=== PATIENT | male | born 1960 | race Caucasian/White ===

== ENCOUNTER → 2016-10-21 | Outpatient (CLI) | payer OTHER ==
[~2016-10-21] MED LIST: ACYC-114 PO; ALLO300T PO; ASPI-650 PO; BISA10SU65 PR; CALC-141 PO; CALC3.7S5 NAS; CELE200C PO; DIAZ5TAB4 PO; DIPH50CA PO; DOCU-30 PO; FAMO20TA7 PO; FURO-93 PO; LACT1CAP11 PO; LEVO750T26 PO; MAG30ORA PO; METO25TA35 PO; METR500T PO; MORP-52 PO; MORP15TA3 PO; MULT-658 PO; NITR100C6 PO; NORT25CA PO; ONDA-39 PO; ONDA4TAB13 SL; ONDA4TAB7 PO; OXYC-223 PO; OXYC-229 PO; OXYC10TA6 PO; OXYC1TAB7 PO; OXYC1TAB9 PO; OXYC5TAB3 PO; POLY17PO5 PO; PRED10TA PO; PRED20TA PO; PRED5TAB PO; PREG100C PO; RISE5TAB PO; SENN1TAB7 PO; SULF1TAB23 PO; SULF1TAB24 PO; TACR1CAP4 PO; TERI2.4P SC; TERI2.4P SQ; TEST2.5G5 PO; TIZA4TAB PO; TRAM50TA2 PO
== END | disposition home or self-care (01) ==
LOC: CFH 15:20
PROVIDERS: ATTEND Orthopaedic Surgery Orthopaedic Surgery of the Spine
DX: M51.16 Intervertebral disc disorders with radiculopathy, lumbar region (principal)
CPT/HCPCS: 72148

== ENCOUNTER 2016-11-15 02:11 | Emergency (ER) | payer OTHER ==
[~2016-11-15] VITALS: Ht 195.6 cm; Wt 98.0 kg
[2016-11-15] MEDS ORDERED: ONDANSETRON 2MG/ML, 2ML ONE (02:43)
[2016-11-15] MEDS ORDERED: HYDROmorphone 1 MG/ML, 1ML ONE ×2 (02:43→04:05)
[2016-11-15] MEDS ORDERED: ONDANSETRON 2MG/ML, 2ML IVPush ONE (03:00)
[2016-11-15] MEDS ORDERED: SODIUM CHLORIDE 0.9% 1,000ML IVBOLUS ONE (03:00)
[2016-11-15] MEDS ORDERED: SODIUM CHLORIDE FLUSH 10ML SYR IVF ONE (03:00)
[2016-11-15] MEDS: HYDROmorphone 1 MG/ML, 1ML IVPush PRN ×2 (03:06→04:08)
[2016-11-15 03:14] LABS: HEMATOCRIT 35.9 % (39.2-51.8); HEMOGLOBIN 11.9 g/dL (13.7-18.0); WHITE BLOOD COUNT 13.7 x10^3/uL (3.4-10)
[2016-11-15 03:21] LABS: BLOOD UREA NITROGEN 26 mg/dL (7-18)
[2016-11-15 05:04] VITALS: BP 108/80
== END 2016-11-15 05:21 | disposition home or self-care (01) ==
LOC: ED 02:58
DX: K57.30 Diverticulosis of large intestine without perforation or abscess without bleeding (principal); I10 Essential (primary) hypertension; Z88.0 Allergy status to penicillin; Z88.1 Allergy status to other antibiotic agents; Z88.8 Allergy status to other drugs, medicaments and biological substances
CPT/HCPCS: 36415; 74177; 80048; 81003; 82040; 85025; 96361; 96374; 96375; 96376; 99285; J1170; J2405; J7030

== ENCOUNTER 2016-11-18 14:51 | Inpatient (IN) | payer OTHER ==
[~2016-11-18] VITALS: Ht 195.6 cm; Wt 104.6 kg
[~2016-11-18 14:51] MED LIST changes: +DOCU-131 PO; -DOCU-30 PO; -ONDA-39 PO; +ONDA4TAB12 PO; -OXYC-223 PO; -OXYC-229 PO; +OXYC-306 PO; +OXYC-307 PO
[2016-11-18] MEDS ORDERED: SODIUM CHLORIDE FLUSH 10ML SYR IVF ONE (15:30)
[2016-11-18] MEDS ORDERED: ONDANSETRON 2MG/ML, 2ML IVPush ONE (15:30)
[2016-11-18] MEDS ORDERED: SODIUM CHLORIDE 0.9% 1,000ML IVBOLUS ONE (15:30)
[2016-11-18 15:46] LABS: HEMATOCRIT 43.2 % (39.2-51.8); HEMOGLOBIN 14.5 g/dL (13.7-18.0)
[2016-11-18] MEDS ORDERED: ONDANSETRON 2MG/ML, 2ML ONE (15:52)
[2016-11-18] MEDS ORDERED: HYDROmorphone 1 MG/ML, 1ML ONE (15:52)
[2016-11-18 15:59] LABS: ASPARTATE AMINO TRANSFERASE 21 U/L (15-37); BLOOD UREA NITROGEN 29 mg/dL (7-18)
[2016-11-18] MEDS ORDERED: HYDROmorphone 2 MG/ML, 1ML IVPush ONE (16:00)
[2016-11-18 18:15] LABS: PATH.CAST-FLAG NOT PRESENT; SPERM-FLAG NOT PRESENT; SRC-FLAG NOT PRESENT; XTAL-FLAG NOT PRESENT; YLC-FLAG NOT PRESENT
[2016-11-18] MEDS ORDERED: hydrALAzine 20 MG/ML, 1ML IVPush PRN (18:30)
[2016-11-18] MEDS ORDERED: ONDANSETRON 2MG/ML, 2ML IVPush PRN (18:30)
[2016-11-18] MEDS ORDERED: POLYETHYLENE GLYCOL 17 GM PACKET PO PRN (18:30)
[2016-11-18] MEDS ORDERED: BISACODYL 10 MG SUPP PR PRN (18:30)
[2016-11-18] MEDS ORDERED: ACYCLOVIR 400 MG TABLET PO PRN (18:30)
[2016-11-18] MEDS ORDERED: DOCUSATE 100 MG CAPSULE PO PRN (18:30)
[2016-11-18 19:15] VITALS: BP 90/61
[2016-11-18] MEDS ORDERED: OXYcodone IR 5MG TABLET ONE (19:48)
[2016-11-18] MEDS: OXYcodone IR 5MG TABLET PO SCH (19:57)
[2016-11-18] MEDS: SODIUM CHLORIDE 0.9% 1,000 ML IV SCH (20:01)
[2016-11-18] MEDS: PREGABALIN 100 MG CAPSULE PO SCH (20:01)
[2016-11-18] MEDS: KETOROLAC 30 MG/1 ML IVPush PRN (21:58)
[2016-11-19] MEDS: SODIUM CHLORIDE 0.9% 1,000 ML IV SCH ×4 (01:10→21:10)
[2016-11-19 01:27] VITALS: BP 91/59
[2016-11-19 04:58] LABS: HEMATOCRIT 35.8 % (39.2-51.8); HEMOGLOBIN 11.9 g/dL (13.7-18.0); WHITE BLOOD COUNT 10.5 x10^3/uL (3.4-10)
[2016-11-19 05:11] LABS: BLOOD UREA NITROGEN 34 mg/dL (7-18)
[2016-11-19 06:50] VITALS: BP 101/67
[2016-11-19] MEDS: NORTRIPTYLINE 25 MG CAPSULE PO SCH (08:23)
[2016-11-19] MEDS: PREGABALIN 100 MG CAPSULE PO SCH ×3 (08:23→21:00)
[2016-11-19] MEDS: OXYcodone IR 5MG TABLET PO SCH ×3 (08:23→21:00)
[2016-11-19] MEDS: TACROLIMUS 1 MG CAPSULE PO SCH (08:24)
[2016-11-19] MEDS: ALLOPURINOL 300 MG TABLET PO SCH (08:24)
[2016-11-19] MEDS: SENNA/DOCUSATE TABLET PO SCH (08:24)
[2016-11-19 13:00] VITALS: BP 103/66
[2016-11-19] MEDS: TAMSULOSIN 0.4 MG CAP.ER.24H PO SCH (13:25)
[2016-11-19] MEDS: CLINDAMYCIN PMX 900MG/50ML 50 ML IV SCH (15:43)
[2016-11-19] MEDS: HEPARIN 5,000 UNITS/ML, 1ML SQ SCH (15:44)
[2016-11-19] MEDS ORDERED: LIDOCAINE 1%, 20ML ONE (16:03)
[2016-11-19 18:18] LABS: SYN WBC SQ COUNTED 1
[2016-11-19 18:19] LABS: SYN DILUTIN 1
[2016-11-19] MEDS ORDERED: TRANEXAMIC ACID 100 MG/ML, 10ML ONE ×4 (19:33→19:34)
[2016-11-19] MEDS ORDERED: VANCOMYCIN 1,000 MG ONE ×2 (19:34→22:35)
[2016-11-19] MEDS ORDERED: ROPIvacaine/PF 0.2%, 20 ML ONE (19:35)
[2016-11-19] MEDS ORDERED: EPINEPHRINE 1 MG/ML, 1ML ONE (19:36)
[2016-11-19 19:38] VITALS: BP 99/66
[2016-11-19] MEDS ORDERED: VANCOMYCIN PER PHARMACY MC PRN (21:00)
[2016-11-19] MEDS ORDERED: PIPERACILLIN/TAZO 2.25 GM in SODIUM CHLORIDE 0.9% 50 ML IV SCH (21:00)
[2016-11-19] MEDS ORDERED: FENTANYL PF 100 MCG/2ML ONE ×4 (21:02→23:18)
[2016-11-19] MEDS ORDERED: MIDAZOLAM 1 MG/ML, 2ML ONE (21:02)
[2016-11-19] MEDS ORDERED: ONDANSETRON 2MG/ML, 2ML ONE (21:13)
[2016-11-19] MEDS ORDERED: ROCURONIUM 10 MG/ML ONE (21:13)
[2016-11-19] MEDS ORDERED: PROPOFOL 10 MG/ML, 20ML ONE (21:13)
[2016-11-19] MEDS ORDERED: SUCCINYLCHOLINE 20 MG/ML, 10ML ONE (21:13)
[2016-11-19] MEDS ORDERED: DEXAMETHASONE 4 MG/ML, 1ML ONE (21:13)
[2016-11-19] MEDS ORDERED: PHARMACOKINETIC CONSULTATION MC ONE (21:30)
[2016-11-19] MEDS ORDERED: PHARMACOKINETIC MONITORING MC PRN (21:30)
[2016-11-19] MEDS ORDERED: ONDANSETRON 2MG/ML, 2ML IVPush PRN (22:00)
[2016-11-19] MEDS ORDERED: LABETALOL 5MG/ML, 20ML IV PRN (22:00)
[2016-11-19] MEDS ORDERED: ACETAMINOPHEN 325 MG TABLET PO PRN (22:00)
[2016-11-19] MEDS ORDERED: OXYcodone 5 MG/5 ML ORAL.SOL UDC PO PRN (22:00)
[2016-11-19] MEDS ORDERED: hydrALAzine 20 MG/ML, 1ML IV PRN (22:00)
[2016-11-19] MEDS ORDERED: VANCOMYCIN 1,000 MG IM ONE (22:36)
[2016-11-19] MEDS ORDERED: OXYcodone 5 MG/5 ML ORAL.SOL UDC ONE (23:18)
[2016-11-19] MEDS: FENTANYL PF 100 MCG/2ML IV PRN ×2 (23:27→23:37)
[2016-11-19] MEDS ORDERED: HYDROmorphone 1 MG/ML, 1ML ONE (23:46)
[2016-11-19] MEDS: HYDROmorphone 1 MG/ML, 1ML IV PRN (23:48)
[2016-11-20] VITALS (8 sets, daily range): BP systolic 77–103; BP diastolic 55–81
[2016-11-20] MEDS: HYDROmorphone 1 MG/ML, 1ML IV PRN (00:02)
[2016-11-20] MEDS: CLINDAMYCIN PMX 900MG/50ML 50 ML IV SCH (01:04)
[2016-11-20] MEDS: MEROPENEM 1 GM in SODIUM CHLORIDE 0.9% 100 ML IV SCH ×3 (01:04→17:19)
[2016-11-20] MEDS: KETOROLAC 30 MG/1 ML IVPush PRN (01:40)
[2016-11-20] MEDS ORDERED: SODIUM CHLORIDE 0.9% 1,000ML IVBOLUS ONE ×4 (04:30→13:30)
[2016-11-20] MEDS: HEPARIN 5,000 UNITS/ML, 1ML SQ SCH ×2 (04:51→16:30)
[2016-11-20] MEDS: SODIUM CHLORIDE 0.9% 1,000 ML IV SCH ×3 (04:52→20:12)
[2016-11-20] MEDS ORDERED: FENTANYL PF 100 MCG/2ML IV STA (05:28)
[2016-11-20] MEDS ORDERED: FENTANYL PF 100 MCG/2ML ONE (05:29)
[2016-11-20 06:43] LABS: HEMATOCRIT 29.6 % (39.2-51.8); HEMOGLOBIN 9.8 g/dL (13.7-18.0); WHITE BLOOD COUNT 5.8 x10^3/uL (3.4-10)
[2016-11-20 06:55] LABS: ASPARTATE AMINO TRANSFERASE 16 U/L (15-37); BLOOD UREA NITROGEN 27 mg/dL (7-18)
[2016-11-20] MEDS: DAPTOMYCIN 400 MG in SODIUM CHLORIDE 0.9% 100 ML IV SCH (07:42)
[2016-11-20] MEDS ORDERED: VANCOMYCIN 1,900 MG in SODIUM CHLORIDE 0.9% 250 ML IV SCH (08:00)
[2016-11-20] MEDS ORDERED: ACETAMINOPHEN 325 MG TABLET ONE (08:15)
[2016-11-20] MEDS: ACETAMINOPHEN 325 MG TABLET PO PRN (08:16)
[2016-11-20] MEDS: OXYcodone IR 5MG TABLET PO SCH ×3 (09:41→20:14)
[2016-11-20] MEDS: TACROLIMUS 1 MG CAPSULE PO SCH (09:48)
[2016-11-20] MEDS: ALLOPURINOL 300 MG TABLET PO SCH (09:48)
[2016-11-20] MEDS: PREGABALIN 100 MG CAPSULE PO SCH ×3 (09:49→20:14)
[2016-11-20] MEDS: TAMSULOSIN 0.4 MG CAP.ER.24H PO SCH (09:49)
[2016-11-20] MEDS: SENNA/DOCUSATE TABLET PO SCH (09:49)
[2016-11-20] MEDS: NORTRIPTYLINE 25 MG CAPSULE PO SCH (09:49)
[2016-11-20] MEDS ORDERED: SODIUM CHLORIDE 0.9% 1,000 ML IVBOLUS PRN (10:20)
[2016-11-20] MEDS ORDERED: NOREPINEPHRINE 4 MG in SODIUM CHLORIDE 0.9% 246 ML IV PRN (15:00)
[2016-11-21] MEDS: MEROPENEM 1 GM in SODIUM CHLORIDE 0.9% 100 ML IV SCH ×3 (00:04→17:08)
[2016-11-21] MEDS: HYDROmorphone 2 MG/ML, 1ML IVPush PRN ×2 (00:04→06:41)
[2016-11-21] MEDS: SODIUM CHLORIDE 0.9% 1,000 ML IV SCH ×3 (03:05→10:46)
[2016-11-21] MEDS: HEPARIN 5,000 UNITS/ML, 1ML SQ SCH ×2 (03:05→17:09)
[2016-11-21 04:15] VITALS: BP 100/61
[2016-11-21] MEDS: DAPTOMYCIN 400 MG in SODIUM CHLORIDE 0.9% 100 ML IV SCH (06:28)
[2016-11-21] MEDS: ALLOPURINOL 300 MG TABLET PO SCH (10:11)
[2016-11-21] MEDS: NORTRIPTYLINE 25 MG CAPSULE PO SCH (10:11)
[2016-11-21] MEDS: TAMSULOSIN 0.4 MG CAP.ER.24H PO SCH (10:11)
[2016-11-21] MEDS: OXYcodone IR 5MG TABLET PO SCH ×3 (10:11→20:42)
[2016-11-21] MEDS: SENNA/DOCUSATE TABLET PO SCH (10:11)
[2016-11-21] MEDS: PREGABALIN 100 MG CAPSULE PO SCH ×3 (10:11→20:42)
[2016-11-21] MEDS: TACROLIMUS 1 MG CAPSULE PO SCH (10:11)
[2016-11-21] MEDS: ACETAMINOPHEN 325 MG TABLET PO PRN (10:37)
[2016-11-21 12:25] LABS: HEMOGLOBIN 8.4 g/dL (13.7-18.0); WHITE BLOOD COUNT 11.5 x10^3/uL (3.4-10)
[2016-11-21 12:44] LABS: BLOOD UREA NITROGEN 17 mg/dL (7-18)
[2016-11-21 13:56] LABS: DIFF TOTAL CELLS COUNTED 100 CELL DIFF
[2016-11-21 13:58] LABS: ANISOCYTOSIS 1+
[2016-11-21 13:59] LABS: VERIFY COUNTS? YES
[2016-11-22] MEDS: MEROPENEM 1 GM in SODIUM CHLORIDE 0.9% 100 ML IV SCH ×3 (00:26→16:12)
[2016-11-22] MEDS: HEPARIN 5,000 UNITS/ML, 1ML SQ SCH ×2 (04:57→15:12)
[2016-11-22 05:44] LABS: HEMATOCRIT 27.4 % (39.2-51.8); HEMOGLOBIN 9.2 g/dL (13.7-18.0); WHITE BLOOD COUNT 13.4 x10^3/uL (3.4-10)
[2016-11-22 06:00] VITALS: BP 92/56
[2016-11-22 06:06] LABS: ASPARTATE AMINO TRANSFERASE 24 U/L (15-37); BLOOD UREA NITROGEN 15 mg/dL (7-18)
[2016-11-22] MEDS: DAPTOMYCIN 600 MG in SODIUM CHLORIDE 0.9% 100 ML IV SCH (08:56)
[2016-11-22] MEDS: PREGABALIN 100 MG CAPSULE PO SCH ×3 (08:58→23:00)
[2016-11-22] MEDS: NORTRIPTYLINE 25 MG CAPSULE PO SCH (08:58)
[2016-11-22] MEDS: TAMSULOSIN 0.4 MG CAP.ER.24H PO SCH (08:58)
[2016-11-22] MEDS: SENNA/DOCUSATE TABLET PO SCH (08:58)
[2016-11-22] MEDS: ALLOPURINOL 300 MG TABLET PO SCH (08:58)
[2016-11-22] MEDS: TACROLIMUS 1 MG CAPSULE PO SCH (08:58)
[2016-11-22] MEDS: OXYcodone IR 5MG TABLET PO SCH ×2 (08:59→13:26)
[2016-11-22 17:27] VITALS: BP 120/83
[2016-11-22] MEDS: OXYcodone IR 5MG TABLET PO PRN (17:52)
[2016-11-22] MEDS ORDERED: SODIUM CHLORIDE 0.9% 1,000 ML IV SCH (18:30)
[2016-11-22 20:28] VITALS: BP 133/75
[2016-11-23] MEDS: MEROPENEM 1 GM in SODIUM CHLORIDE 0.9% 100 ML IV SCH ×2 (02:03→08:36)
[2016-11-23] MEDS: OXYcodone IR 5MG TABLET PO PRN ×4 (02:17→16:49)
[2016-11-23 02:25] VITALS: BP 147/83
[2016-11-23] MEDS: HEPARIN 5,000 UNITS/ML, 1ML SQ SCH ×2 (05:15→16:49)
[2016-11-23 06:40] LABS: HEMATOCRIT 26.6 % (39.2-51.8); WHITE BLOOD COUNT 11.2 x10^3/uL (3.4-10)
[2016-11-23 07:27] VITALS: BP 111/80
[2016-11-23] MEDS: DAPTOMYCIN 600 MG in SODIUM CHLORIDE 0.9% 100 ML IV SCH (08:23)
[2016-11-23] MEDS: NORTRIPTYLINE 25 MG CAPSULE PO SCH (08:24)
[2016-11-23] MEDS: TAMSULOSIN 0.4 MG CAP.ER.24H PO SCH (08:24)
[2016-11-23] MEDS: PREGABALIN 100 MG CAPSULE PO SCH ×3 (08:24→20:38)
[2016-11-23] MEDS: TACROLIMUS 1 MG CAPSULE PO SCH (08:24)
[2016-11-23] MEDS: ALLOPURINOL 300 MG TABLET PO SCH (08:25)
[2016-11-23] MEDS: SENNA/DOCUSATE TABLET PO SCH (08:25)
[2016-11-23 13:27] VITALS: BP 104/66
[2016-11-23] MEDS ORDERED: BISACODYL 10 MG SUPP PR PRN (16:30)
[2016-11-23] MEDS ORDERED: hydrALAzine 20 MG/ML, 1ML IVPush PRN (16:30)
[2016-11-23] MEDS ORDERED: DOCUSATE 100 MG CAPSULE PO PRN (16:30)
[2016-11-23] MEDS: KETOROLAC 30 MG/1 ML IVPush PRN (16:50)
[2016-11-23] MEDS: POLYTRIM OPHTH 10ML EACHEYE SCH ×2 (18:00→20:39)
[2016-11-23 19:23] VITALS: BP 115/78
[2016-11-24] MEDS: OXYcodone IR 5MG TABLET PO PRN ×4 (00:54→21:39)
[2016-11-24 01:05] VITALS: BP 108/75
[2016-11-24] MEDS: HEPARIN 5,000 UNITS/ML, 1ML SQ SCH ×2 (05:11→16:21)
[2016-11-24] MEDS: POLYTRIM OPHTH 10ML EACHEYE SCH ×6 (06:36→21:40)
[2016-11-24 06:57] VITALS: BP 102/73
[2016-11-24] MEDS: DAPTOMYCIN 600 MG in SODIUM CHLORIDE 0.9% 100 ML IV SCH (07:55)
[2016-11-24 08:05] LABS: HEMATOCRIT 28.6 % (39.2-51.8); HEMOGLOBIN 9.6 g/dL (13.7-18.0); WHITE BLOOD COUNT 9.8 x10^3/uL (3.4-10)
[2016-11-24] MEDS: TAMSULOSIN 0.4 MG CAP.ER.24H PO SCH (09:59)
[2016-11-24] MEDS: NORTRIPTYLINE 25 MG CAPSULE PO SCH (09:59)
[2016-11-24] MEDS: PREGABALIN 100 MG CAPSULE PO SCH ×3 (09:59→21:39)
[2016-11-24] MEDS: TACROLIMUS 1 MG CAPSULE PO SCH (10:00)
[2016-11-24] MEDS: ALLOPURINOL 300 MG TABLET PO SCH (10:00)
[2016-11-24] MEDS: SENNA/DOCUSATE TABLET PO SCH (10:00)
[2016-11-24 15:33] VITALS: BP 104/71
[2016-11-24 18:55] VITALS: BP 128/86
[2016-11-25 02:00] VITALS: BP 117/81
[2016-11-25] MEDS: POLYTRIM OPHTH 10ML EACHEYE SCH ×6 (05:05→20:31)
[2016-11-25] MEDS: HEPARIN 5,000 UNITS/ML, 1ML SQ SCH ×2 (05:06→17:25)
[2016-11-25 05:44] LABS: HEMATOCRIT 27.1 % (39.2-51.8); HEMOGLOBIN 9.2 g/dL (13.7-18.0); WHITE BLOOD COUNT 9.8 x10^3/uL (3.4-10)
[2016-11-25 06:17] LABS: ASPARTATE AMINO TRANSFERASE 18 U/L (15-37); BLOOD UREA NITROGEN 20 mg/dL (7-18)
[2016-11-25] MEDS: OXYcodone IR 5MG TABLET PO PRN ×3 (07:23→20:31)
[2016-11-25] MEDS: DAPTOMYCIN 600 MG in SODIUM CHLORIDE 0.9% 100 ML IV SCH (08:43)
[2016-11-25 08:46] VITALS: BP 112/82
[2016-11-25] MEDS: SENNA/DOCUSATE TABLET PO SCH (10:04)
[2016-11-25] MEDS: NORTRIPTYLINE 25 MG CAPSULE PO SCH (10:04)
[2016-11-25] MEDS: ALLOPURINOL 300 MG TABLET PO SCH (10:04)
[2016-11-25] MEDS: PREGABALIN 100 MG CAPSULE PO SCH ×3 (10:05→20:31)
[2016-11-25] MEDS: TACROLIMUS 1 MG CAPSULE PO SCH (10:05)
[2016-11-25] MEDS: TAMSULOSIN 0.4 MG CAP.ER.24H PO SCH (10:05)
[2016-11-25 15:01] VITALS: BP 107/72
[2016-11-25] MEDS: ERTAPENEM 1 GM in SODIUM CHLORIDE 0.9% 50 ML IV SCH (17:25)
[2016-11-25 20:38] VITALS: BP 121/81
[2016-11-26 04:09] VITALS: BP 97/68
[2016-11-26] MEDS: HEPARIN 5,000 UNITS/ML, 1ML SQ SCH ×2 (05:12→15:02)
[2016-11-26] MEDS: POLYTRIM OPHTH 10ML EACHEYE SCH ×6 (05:12→20:08)
[2016-11-26] MEDS: SENNA/DOCUSATE TABLET PO SCH (09:03)
[2016-11-26] MEDS: TAMSULOSIN 0.4 MG CAP.ER.24H PO SCH (09:03)
[2016-11-26] MEDS: OXYcodone IR 5MG TABLET PO PRN ×3 (09:04→20:07)
[2016-11-26] MEDS: ALLOPURINOL 300 MG TABLET PO SCH (09:04)
[2016-11-26] MEDS: NORTRIPTYLINE 25 MG CAPSULE PO SCH (09:04)
[2016-11-26] MEDS: PREGABALIN 100 MG CAPSULE PO SCH ×3 (09:04→20:07)
[2016-11-26] MEDS: TACROLIMUS 1 MG CAPSULE PO SCH (09:04)
[2016-11-26 09:26] VITALS: BP 105/71
[2016-11-26 13:23] VITALS: BP 112/74
[2016-11-26 14:33] LABS: HEMATOCRIT 28.6 % (39.2-51.8); HEMOGLOBIN 9.7 g/dL (13.7-18.0); WHITE BLOOD COUNT 12.7 x10^3/uL (3.4-10)
[2016-11-26] MEDS: ACETAMINOPHEN 325 MG TABLET PO PRN (15:01)
[2016-11-26] MEDS: ERTAPENEM 1 GM in SODIUM CHLORIDE 0.9% 50 ML IV SCH (17:08)
[2016-11-26 20:07] VITALS: BP_SYST 93
[2016-11-27] MEDS: HEPARIN 5,000 UNITS/ML, 1ML SQ SCH ×2 (04:04→17:04)
[2016-11-27] MEDS: OXYcodone IR 5MG TABLET PO PRN ×4 (04:09→21:19)
[2016-11-27] MEDS: POLYTRIM OPHTH 10ML EACHEYE SCH ×6 (06:02→20:45)
[2016-11-27 08:18] LABS: HEMATOCRIT 27.4 % (39.2-51.8); HEMOGLOBIN 9.1 g/dL (13.7-18.0); WHITE BLOOD COUNT 11.1 x10^3/uL (3.4-10)
[2016-11-27 08:21] VITALS: BP 101/69
[2016-11-27] MEDS: SENNA/DOCUSATE TABLET PO SCH (09:00)
[2016-11-27] MEDS: ALLOPURINOL 300 MG TABLET PO SCH (09:00)
[2016-11-27] MEDS: PREGABALIN 100 MG CAPSULE PO SCH ×3 (09:00→20:44)
[2016-11-27] MEDS: NORTRIPTYLINE 25 MG CAPSULE PO SCH (09:00)
[2016-11-27] MEDS: TACROLIMUS 1 MG CAPSULE PO SCH (09:00)
[2016-11-27] MEDS: TAMSULOSIN 0.4 MG CAP.ER.24H PO SCH (09:00)
[2016-11-27 16:32] VITALS: BP 93/65
[2016-11-27] MEDS: ERTAPENEM 1 GM in SODIUM CHLORIDE 0.9% 50 ML IV SCH (17:04)
[2016-11-27 20:30] VITALS: BP 101/69
[2016-11-28] MEDS: OXYcodone IR 5MG TABLET PO PRN ×5 (01:47→18:21)
[2016-11-28 03:08] VITALS: BP 94/62
[2016-11-28] MEDS: HEPARIN 5,000 UNITS/ML, 1ML SQ SCH ×2 (05:25→16:33)
[2016-11-28] MEDS: POLYTRIM OPHTH 10ML EACHEYE SCH ×6 (05:25→20:32)
[2016-11-28 07:23] VITALS: BP 112/75
[2016-11-28] MEDS: SENNA/DOCUSATE TABLET PO SCH (09:00)
[2016-11-28] MEDS: ALLOPURINOL 300 MG TABLET PO SCH (09:00)
[2016-11-28] MEDS: NORTRIPTYLINE 25 MG CAPSULE PO SCH (09:39)
[2016-11-28] MEDS: TAMSULOSIN 0.4 MG CAP.ER.24H PO SCH (09:39)
[2016-11-28] MEDS: TACROLIMUS 1 MG CAPSULE PO SCH (09:40)
[2016-11-28] MEDS: PREGABALIN 100 MG CAPSULE PO SCH ×3 (09:40→20:32)
[2016-11-28 15:35] VITALS: BP 93/59
[2016-11-28] MEDS: ERTAPENEM 1 GM in SODIUM CHLORIDE 0.9% 50 ML IV SCH (16:33)
[2016-11-28 19:49] VITALS: BP 104/73
[2016-11-29 01:15] VITALS: BP 104/70
[2016-11-29] MEDS: OXYcodone IR 5MG TABLET PO PRN ×3 (02:55→17:36)
[2016-11-29] MEDS: POLYTRIM OPHTH 10ML EACHEYE SCH ×6 (05:59→20:54)
[2016-11-29] MEDS: HEPARIN 5,000 UNITS/ML, 1ML SQ SCH ×2 (05:59→17:31)
[2016-11-29] MEDS: TACROLIMUS 1 MG CAPSULE PO SCH (09:20)
[2016-11-29] MEDS: ALLOPURINOL 300 MG TABLET PO SCH (09:20)
[2016-11-29] MEDS: TAMSULOSIN 0.4 MG CAP.ER.24H PO SCH (09:20)
[2016-11-29] MEDS: PREGABALIN 100 MG CAPSULE PO SCH ×3 (09:20→20:54)
[2016-11-29] MEDS: NORTRIPTYLINE 25 MG CAPSULE PO SCH (09:20)
[2016-11-29] MEDS: SENNA/DOCUSATE TABLET PO SCH (09:21)
[2016-11-29 09:54] VITALS: BP 104/71
[2016-11-29 15:39] VITALS: BP 106/73
[2016-11-29] MEDS ORDERED: ACET325T14 PO (16:24)
[2016-11-29] MEDS ORDERED: DOCU-131 PO (16:24)
[2016-11-29] MEDS ORDERED: TAMS-11 PO (16:24)
[2016-11-29] MEDS ORDERED: POLY17PO5 PO (16:24)
[2016-11-29] MEDS ORDERED: ERTA1VIA IV (16:49)
[2016-11-29] MEDS: ERTAPENEM 1 GM in SODIUM CHLORIDE 0.9% 50 ML IV SCH (17:31)
[2016-11-29 19:39] VITALS: BP 106/71
[2016-11-30 01:07] VITALS: BP 99/68
[2016-11-30] MEDS: HEPARIN 5,000 UNITS/ML, 1ML SQ SCH (05:00)
[2016-11-30] MEDS: POLYTRIM OPHTH 10ML EACHEYE SCH ×3 (05:24→12:57)
[2016-11-30] MEDS: OXYcodone IR 5MG TABLET PO PRN ×2 (09:52→14:23)
[2016-11-30] MEDS: TAMSULOSIN 0.4 MG CAP.ER.24H PO SCH (09:52)
[2016-11-30] MEDS: PREGABALIN 100 MG CAPSULE PO SCH (09:52)
[2016-11-30] MEDS: NORTRIPTYLINE 25 MG CAPSULE PO SCH (09:53)
[2016-11-30] MEDS: ALLOPURINOL 300 MG TABLET PO SCH (09:53)
[2016-11-30] MEDS: TACROLIMUS 1 MG CAPSULE PO SCH (09:53)
[2016-11-30] MEDS: SENNA/DOCUSATE TABLET PO SCH (09:53)
[2016-11-30 11:12] VITALS: BP 102/70
[2016-11-30 13:50] VITALS: BP 116/78
[2016-11-30 14:20] VITALS: BP 118/72
== END 2016-11-30 14:40 | DRG 466 ==
LOC: ED 16:28 → EDIP 18:00 → 3NW 18:59 → 4NOR 11-20 03:36 → CCU 11-20 10:34 → 4NOR 11-22 17:31
PROVIDERS: ADMIT Family Medicine; ATTEND Family Medicine
PROC: 0SUA09Z Supplement Right Hip Joint, Acetabular Surface with Liner, Open Approach (ICD-10-PCS; 2016-11-19)
PROC: 0SRR01Z Replacement of Right Hip Joint, Femoral Surface with Metal Synthetic Substitute, Open Approach (ICD-10-PCS; 2016-11-19)
PROC: 0S993ZX Drainage of Right Hip Joint, Percutaneous Approach, Diagnostic (ICD-10-PCS; 2016-11-19)
PROC: 0SP909Z Removal of Liner from Right Hip Joint, Open Approach (ICD-10-PCS; principal; 2016-11-19 21:30)
PROC: 0T9B70Z Drainage of Bladder with Drainage Device, Via Natural or Artificial Opening (ICD-10-PCS; 2016-11-20)
PROC: 02HV33Z Insertion of Infusion Device into Superior Vena Cava, Percutaneous Approach (ICD-10-PCS; 2016-11-23)
PROC: B5181ZA Fluoroscopy of Superior Vena Cava using Low Osmolar Contrast, Guidance (ICD-10-PCS; 2016-11-23)
DX: T84.51XA Infection and inflammatory reaction due to internal right hip prosthesis, initial encounter (principal); N17.0 Acute kidney failure with tubular necrosis; A41.9 Sepsis, unspecified organism; M00.9 Pyogenic arthritis, unspecified; G60.8 Other hereditary and idiopathic neuropathies; I48.91 Unspecified atrial fibrillation; I12.9 Hypertensive chronic kidney disease with stage 1 through stage 4 chronic kidney disease, or unspecified chronic kidney disease; Z94.81 Bone marrow transplant status; Z94.84 Stem cells transplant status; C92.01 Acute myeloblastic leukemia, in remission; E87.1 Hypo-osmolality and hyponatremia; L03.115 Cellulitis of right lower limb; T84.020A Dislocation of internal right hip prosthesis, initial encounter; E10.22 Type 1 diabetes mellitus with diabetic chronic kidney disease; Y83.1 Surgical operation with implant of artificial internal device as the cause of abnormal reaction of the patient, or of later complication, without mention of misadventure at the time of the procedure; D63.8 Anemia in other chronic diseases classified elsewhere; E86.0 Dehydration; G89.29 Other chronic pain; N18.3 Chronic kidney disease, stage 3 (moderate); J98.4 Other disorders of lung; K21.9 Gastro-esophageal reflux disease without esophagitis; M10.9 Gout, unspecified; M81.0 Age-related osteoporosis without current pathological fracture; N43.41 Spermatocele of epididymis, single; R33.9 Retention of urine, unspecified; Y79.2 Prosthetic and other implants, materials and accessory orthopedic devices associated with adverse incidents; Z66 Do not resuscitate; Z80.6 Family history of leukemia; Z82.49 Family history of ischemic heart disease and other diseases of the circulatory system
CPT/HCPCS: 36415; 36569; 71010; 72170; 74176; 76937; 77001; 77002; 80048; 80053; 81001; 81003; 82550; 82962; 83605; 85025; 85651; 85810; 86140; 86850; 86870; 86880; 86900; 86922; 86923; 87040; 87070; 87075; 87077; 87081; 87186; 87205; 89050; 89060; 93005; 96374; 96375; J0171; J0878; J1100; J1170; J1335; J1644; J1885; J2185; J2250; J2405; J2704; J2795; J3010; J3370; J3490; J7507; C1751; C1776; J0330; J7030; J7050; J7512

== ENCOUNTER 2017-03-26 19:41 | Emergency (ER) | payer OTHER ==
[~2017-03-26] VITALS: Ht 193 cm; Wt 90.5 kg
[~2017-03-26 19:41] MED LIST changes: +ACET325T14 PO; +ERTA1VIA IV; +TAMS-11 PO
[2017-03-26] MEDS ORDERED: ONDANSETRON ODT 4 MG ONE ×2 (20:06)
[2017-03-26] MEDS ORDERED: FAMOTIDINE 20 MG/2 ML IVP ONE (20:30)
[2017-03-26] MEDS ORDERED: SODIUM CHLORIDE FLUSH 10ML SYR IVF ONE (20:30)
[2017-03-26] MEDS ORDERED: ONDANSETRON ODT 4 MG PO ONE (20:30)
[2017-03-26] MEDS ORDERED: SODIUM CHLORIDE 0.9% 1,000ML IVBOLUS ONE (20:30)
[2017-03-26 20:37] LABS: MEAN CORPUSCULAR HGB CONC 34.2 g/dL (33.2-36.2); MEAN CORPUSCULAR VOLUME 93.6 fL (81-97); MEAN PLATELET VOLUME 11.2 fL (7.4-10.4); PLATELET COUNT 140 x10^3/uL (130-400); RED BLOOD COUNT 5.18 x10^6/uL (4.38-5.82); RED CELL DISTRIBUTION WIDTH 18.5 % (9.4-14.8)
[2017-03-26 20:42] LABS: INTERNATIONAL NORMALIZED RATIO 0.95 (0.93-1.1); PROTHROMBIN TIME 9.8 Seconds (9.6-11.5)
[2017-03-26 20:45] LABS: ALBUMIN 3.5 g/dL (3.4-5.0); ANION GAP 10 mmol/L (5-15); CALCIUM 9.4 mg/dL (8.5-10.1); CHLORIDE 103 mmol/L (98-107)
[2017-03-26 20:49] LABS: ALANINE AMINOTRANSFERASE 31 U/L (12-78); ALKALINE PHOSPHATASE 193 U/L (45-117); BILIRUBIN,TOTAL 0.4 mg/dL (0.2-1.0); CREATININE 2.07 mg/dL (0.7-1.3); TOTAL PROTEIN 8.7 g/dL (6.4-8.2)
[2017-03-26 20:56] LABS: BASOPHILS % (AUTO) 1 % (0-1); EOSINOPHILS # (AUTO) 0.03 x10^3/uL (0-0.4); EOSINOPHILS % (AUTO) 0 % (1-7); LYMPHOCYTES # (AUTO) 3.53 x10^3/uL (1-3.4); LYMPHOCYTES % (AUTO) 37 % (22-44); MD MORPH REVIEW ONLY; MONOCYTES # (AUTO) 0.79 x10^3/uL (0.2-0.8); MONOCYTES % (AUTO) 8 % (2-9); NEUTROPHILS # (AUTO) 5.08 x10^3/uL (1.8-6.8); NEUTROPHILS % (AUTO) 53 % (42-75)
[2017-03-26 21:01] LABS: <RBC MORPHOLOGY> NORMAL
[2017-03-26 21:02] LABS: <PLATELET ESTIMATE> ADEQUATE; <PLT MORPHOLOGY> NORMAL PLT MORPH
[2017-03-26] MEDS ORDERED: SULF-169 PO (22:31)
[2017-03-26] MEDS ORDERED: CLIN300C8 PO (22:31)
[2017-03-26] MEDS ORDERED: IBUP-1222 PO (22:31)
[2017-03-26] MEDS ORDERED: FAMO20TA7 PO (22:31)
[2017-03-26] MEDS ORDERED: TERI2.4P INJ (22:31)
[2017-03-26] MEDS ORDERED: FURO20TA3 PO (22:31)
[2017-03-26] MEDS ORDERED: MEGE40TA PO (22:31)
[2017-03-26] MEDS ORDERED: FAMOTIDINE 20 MG/2 ML ONE (23:29)
[2017-03-27] MEDS ORDERED: ONDANSETRON 2MG/ML, 2ML IVPush ONE (03:00)
[2017-03-27] MEDS ORDERED: ONDANSETRON 2MG/ML, 2ML ONE (03:05)
[2017-03-27 03:24] VITALS: BP 129/71
== END 2017-03-27 03:26 | disposition home or self-care (01) ==
LOC: ED 03-27 03:20
DX: E86.0 Dehydration (principal); R19.7 Diarrhea, unspecified; R11.2 Nausea with vomiting, unspecified; I10 Essential (primary) hypertension
CPT/HCPCS: 36415; 80053; 83690; 85025; 85610; 96361; 96374; 96375; 99284; J2405; J7030; Q0162; S0028

== ENCOUNTER → 2017-12-02 | Outpatient (CLI) | payer OTHER ==
[~2017-12-02] MED LIST changes: +CLIN300C8 PO; +FURO20TA3 PO; +IBUP-1222 PO; +MEGE40TA PO; +OXYC-432 PO; -OXYC1TAB9 PO; -SENN1TAB7 PO; +SENN1TAB8 PO; +SULF-169 PO; +TERI2.4P INJ
== END | disposition home or self-care (01) ==
LOC: CFH 10:30
PROVIDERS: ATTEND Internal Medicine Endocrinology, Diabetes & Metabolism
DX: M81.8 Other osteoporosis without current pathological fracture (principal); Z88.1 Allergy status to other antibiotic agents
CPT/HCPCS: 77080

== ENCOUNTER 2017-12-18 14:10 | Emergency (ER) | payer OTHER ==
[~2017-12-18] VITALS: Ht 188 cm; Wt 97.3 kg
[2017-12-18 15:13] LABS: ALANINE AMINOTRANSFERASE 23 U/L (12-78); ALBUMIN 3.1 g/dL (3.4-5.0); ANION GAP 11 mmol/L (5-15); BASOPHILS # (AUTO) 0.06 x10^3/uL (0-0.1); BASOPHILS % (AUTO) 1 % (0-1); CALCIUM 8.7 mg/dL (8.5-10.1); CHLORIDE 104 mmol/L (98-107); CREATININE 1.69 mg/dL (0.7-1.3); EOSINOPHILS # (AUTO) 0.06 x10^3/uL (0-0.4); EOSINOPHILS % (AUTO) 1 % (1-7); LYMPHOCYTES # (AUTO) 2.88 x10^3/uL (1-3.4); LYMPHOCYTES % (AUTO) 25 % (22-44); MD NO; MEAN CORPUSCULAR HEMOGLOBIN 33.9 pg (27.5-34.5); MEAN CORPUSCULAR HGB CONC 34.6 g/dL (33.2-36.2); MEAN PLATELET VOLUME 10.9 fL (7.4-10.4); MONOCYTES # (AUTO) 1.21 x10^3/uL (0.2-0.8); MONOCYTES % (AUTO) 10 % (2-9); NEUTROPHILS # (AUTO) 7.47 x10^3/uL (1.8-6.8); NEUTROPHILS % (AUTO) 64 % (42-75); PLATELET COUNT 180 x10^3/uL (130-400); RED BLOOD COUNT 3.94 x10^6/uL (4.38-5.82); RED CELL DISTRIBUTION WIDTH 17.5 % (9.4-14.8)
[2017-12-18 15:16] LABS: ALKALINE PHOSPHATASE 141 U/L (45-117); BILIRUBIN,TOTAL 0.4 mg/dL (0.2-1.0); TOTAL PROTEIN 7.9 g/dL (6.4-8.2)
[2017-12-18] MEDS ORDERED: METHOCARBAMOL 750 MG TABLET PO ONE (17:00)
[2017-12-18] MEDS ORDERED: METHOCARBAMOL 750 MG TABLET ONE (17:02)
[2017-12-18 17:38] LABS: CULTURE INDICATED? NO; MICROSCOPIC NOT IND
[2017-12-18 18:22] VITALS: BP 111/88
== END 2017-12-18 18:25 | disposition home or self-care (01) ==
LOC: ED 18:20
DX: M54.5 Low back pain (principal); M54.6 Pain in thoracic spine; R10.9 Unspecified abdominal pain; I10 Essential (primary) hypertension; M10.9 Gout, unspecified; Z96.649 Presence of unspecified artificial hip joint
CPT/HCPCS: 36415; 74022; 74176; 80053; 81003; 83690; 85025; 93005; 99285

== ENCOUNTER → 2018-01-13 | Outpatient (CLI) | payer OTHER | END | disposition home or self-care (01) | LOC: CFH 08:54 | PROVIDERS: ATTEND Internal Medicine | DX: K74.60 Unspecified cirrhosis of liver (principal); N62 Hypertrophy of breast; R06.02 Shortness of breath; M85.89 Other specified disorders of bone density and structure, multiple sites; M48.54XA Collapsed vertebra, not elsewhere classified, thoracic region, initial encounter for fracture | CPT/HCPCS: 71250 ==

== ENCOUNTER 2018-05-06 23:29 | Inpatient (IN) | payer MEDICARE, OTHER ==
[~2018-05-06] VITALS: Ht 193 cm; Wt 95.9 kg
[~2018-05-06 23:29] MED LIST changes: -NORT25CA PO; +NORT25CA78 PO; +SENN-177 PO; -SENN1TAB8 PO
[2018-05-07] LABS: MD YES; MEAN CORPUSCULAR HEMOGLOBIN 32.4 pg (27.5-34.5); MEAN CORPUSCULAR HGB CONC 34.3 g/dL (33.2-36.2); MEAN CORPUSCULAR VOLUME 94.6 fL (81-97); PLATELET COUNT 162 x10^3/uL (130-400); RED BLOOD COUNT 4.17 x10^6/uL (4.38-5.82)
[2018-05-07] MEDS ORDERED: CYCL5TAB PO
[2018-05-07] MEDS ORDERED: ONDANSETRON 2MG/ML, 2ML IVPush ONE
[2018-05-07] MEDS ORDERED: ASPIRIN 81 MG TABLET CHEW PO ONE
[2018-05-07] MEDS ORDERED: SODIUM CHLORIDE 0.9% 1,000ML IVBOLUS ONE
[2018-05-07] MEDS ORDERED: NITROGLYCERIN SINGLE TAB 0.4 MG SL PRN
[2018-05-07] MEDS ORDERED: SERT50TA28 PO
[2018-05-07] MEDS ORDERED: DOXY100C15 PO
[2018-05-07 00:12] LABS: ALANINE AMINOTRANSFERASE 24 U/L (12-78); ALBUMIN 3.2 g/dL (3.4-5.0); ANION GAP 9 mmol/L (5-15); CALCIUM 8.1 mg/dL (8.5-10.1); CHLORIDE 104 mmol/L (98-107); CREATININE 1.56 mg/dL (0.7-1.3)
[2018-05-07 00:17] LABS: ALKALINE PHOSPHATASE 139 U/L (45-117); BILIRUBIN,TOTAL 0.6 mg/dL (0.2-1.0); TOTAL PROTEIN 7.6 g/dL (6.4-8.2); TROPONIN I < 0.015 ng/mL (0.000-0.045)
[2018-05-07] MEDS ORDERED: MORPHINE SULFATE 4 MG/ML, 1ML ONE ×2 (00:18→01:19)
[2018-05-07] MEDS ORDERED: ONDANSETRON 2MG/ML, 2ML ONE (00:18)
[2018-05-07] MEDS ORDERED: ASPIRIN 81 MG TABLET CHEW ONE (00:18)
[2018-05-07] MEDS: MORPHINE SULFATE 4 MG/ML, 1ML IVPush PRN ×2 (00:23→01:22)
--- NOTE | 2018-05-07 00:31 | NUR ---
PT HERE FOR SUNDDEN ONSET STERNAL CHEST PAIN THAT STARTED APPROX 1999. PAIN IS 10/10. PIV STARTED AND PT MEDICATED. PT TO HAVE CTA. VSS. FAMILY AT BEDSIDE
--- NOTE | 2018-05-07 00:44 | NUR ---
PT TO CT
[2018-05-07 00:51] LABS: BASOPHILS # (AUTO) 0.07 x10^3/uL (0-0.1); BASOPHILS % (AUTO) 1 % (0-1); EOSINOPHILS # (AUTO) 0.21 x10^3/uL (0-0.4); EOSINOPHILS % (AUTO) 1 % (1-7); LYMPHOCYTES # (AUTO) 3.97 x10^3/uL (1-3.4); LYMPHOCYTES % (AUTO) 26 % (22-44); MONOCYTES # (AUTO) 2.41 x10^3/uL (0.2-0.8); MONOCYTES % (AUTO) 16 % (2-9); NEUTROPHILS # (AUTO) 8.66 x10^3/uL (1.8-6.8); NEUTROPHILS % (AUTO) 57 % (42-75)
--- NOTE | 2018-05-07 01:05 | NUR ---
PLACE 20G IN RIGHT FOREARM FOR CT, SENT PT BACK TO ER WITH IV.
[2018-05-07 01:07] LABS: <PLATELET ESTIMATE> ADEQUATE; <PLT MORPHOLOGY> NORMAL PLT MORPH; ANISOCYTOSIS 1+; EOS#(MANUAL) 0.31 x10^3/uL (0.0-0.4); EOS% (MANUAL) 2 % (1-7); LYMPHS% (MANUAL) 17 % (22-44); MONOS#(MANUAL) 2.14 x10^3/uL (0.3-2.7); MONOS% (MANUAL) 14 % (2-9); SEG#(MANUAL) 10.25 x10^3/uL (1.8-6.8); SEGS% (MANUAL) 67 % (42-75)
[2018-05-07] MEDS ORDERED: OMNIPAQUE 350 MG/ML, 100ML BOTTLE ONE (01:07)
--- NOTE | 2018-05-07 01:54 | NUR ---
PT TO BE ADMITTED. MD AT BEDSIDE
[2018-05-07] MEDS ORDERED: IBUPROFEN 600 MG TABLET PO PRN (03:00)
[2018-05-07] MEDS ORDERED: METHOCARBAMOL 500 MG TABLET PO PRN (03:00)
[2018-05-07] MEDS ORDERED: morphine SULFATE 10 MG/ML, 1ML IVPush PRN (03:00)
[2018-05-07] MEDS ORDERED: ACETAMINOPHEN 325 MG TABLET PO PRN (03:00)
[2018-05-07 03:18] VITALS: BP 108/70
[2018-05-07] MEDS ORDERED: FAMOTIDINE 20 MG TABLET PO SCH (03:30)
[2018-05-07] MEDS: HEPARIN 5,000 UNITS/ML, 1ML SQ SCH ×3 (04:21→22:00)
[2018-05-07 04:32] LABS: TROPONIN I < 0.015 ng/mL (0.000-0.045)
[2018-05-07 06:38] LABS: TROPONIN I < 0.015 ng/mL (0.000-0.045)
[2018-05-07 07:08] VITALS: BP 101/70
[2018-05-07] MEDS ORDERED: LIDODERM 5% PATCH TD ONE (08:30)
[2018-05-07] MEDS ORDERED: SERTRALINE 50MG TABLET PO SCH (09:00)
[2018-05-07] MEDS ORDERED: ALLOPURINOL 300 MG TABLET PO SCH (09:00)
[2018-05-07] MEDS ORDERED: FUROSEMIDE 20 MG TABLET PO SCH (09:00)
[2018-05-07] MEDS ORDERED: SERTRALINE 100MG TABLET ONE ×2 (10:11→14:59)
[2018-05-07] MEDS ORDERED: REGADENOSON 0.4 MG/5 ML SYRINGE ONE (12:38)
[2018-05-07 14:58] VITALS: BP 110/72
[2018-05-07 18:56] VITALS: BP 94/62
[2018-05-07 22:39] VITALS: BP_SYST 90; BP_SYST 95; BP_DIAS 59; BP_DIAS 61
== END 2018-05-08 00:56 | disposition home or self-care (01) | DRG 314 ==
LOC: ED 23:59 → EDIP 05-07 01:58 → 5SO 05-07 03:14
PROVIDERS: ADMIT Student in an Organized Health Care Education/Training Program; ATTEND Student in an Organized Health Care Education/Training Program
DX: I31.3 Pericardial effusion (noninflammatory) (principal); J96.21 Acute and chronic respiratory failure with hypoxia; R65.10 Systemic inflammatory response syndrome (SIRS) of non-infectious origin without acute organ dysfunction; Z94.81 Bone marrow transplant status; G47.33 Obstructive sleep apnea (adult) (pediatric); M10.9 Gout, unspecified; N18.3 Chronic kidney disease, stage 3 (moderate); I12.9 Hypertensive chronic kidney disease with stage 1 through stage 4 chronic kidney disease, or unspecified chronic kidney disease; D72.829 Elevated white blood cell count, unspecified; Z66 Do not resuscitate; Z80.6 Family history of leukemia; Z86.73 Personal history of transient ischemic attack (TIA), and cerebral infarction without residual deficits; Z96.649 Presence of unspecified artificial hip joint; Z88.0 Allergy status to penicillin; Z88.1 Allergy status to other antibiotic agents
CPT/HCPCS: 36415; 71045; 71275; 78452; 80053; 83690; 83880; 84484; 85025; 93005; 93017; 96361; 96374; 96375; 96376; 99285; G0378; J1644; J2405; J2785; Q9967; A9502; C9898; J7030

== ENCOUNTER 2018-06-03 14:53 | Inpatient (IN) | payer MEDICARE, OTHER ==
[~2018-06-03] VITALS: Ht 190.5 cm; Wt 100.0 kg
[~2018-06-03 14:53] MED LIST changes: +CYCL5TAB PO; +DOXY100C15 PO; +SERT50TA28 PO
[2018-06-03 15:46] LABS: BASOPHILS # (AUTO) 0.04 x10^3/uL (0-0.1); BASOPHILS % (AUTO) 0 % (0-1); EOSINOPHILS % (AUTO) 3 % (1-7); LYMPHOCYTES # (AUTO) 2.82 x10^3/uL (1-3.4); LYMPHOCYTES % (AUTO) 27 % (22-44); MD NO; MEAN CORPUSCULAR HEMOGLOBIN 31.8 pg (27.5-34.5); MEAN CORPUSCULAR HGB CONC 34.3 g/dL (33.2-36.2); MEAN CORPUSCULAR VOLUME 92.7 fL (81-97); MEAN PLATELET VOLUME 9.4 fL (7.4-10.4); MONOCYTES # (AUTO) 0.87 x10^3/uL (0.2-0.8); MONOCYTES % (AUTO) 9 % (2-9); NEUTROPHILS # (AUTO) 6.26 x10^3/uL (1.8-6.8); NEUTROPHILS % (AUTO) 61 % (42-75); PLATELET COUNT 237 x10^3/uL (130-400); RED CELL DISTRIBUTION WIDTH 16.1 % (9.4-14.8)
[2018-06-03 15:59] LABS: ALANINE AMINOTRANSFERASE 24 U/L (12-78); ANION GAP 7 mmol/L (5-15); CALCIUM 9.4 mg/dL (8.5-10.1); CHLORIDE 105 mmol/L (98-107); CREATININE 1.62 mg/dL (0.7-1.3)
[2018-06-03 16:01] LABS: ALKALINE PHOSPHATASE 217 U/L (45-117); BILIRUBIN,TOTAL 0.4 mg/dL (0.2-1.0); TOTAL PROTEIN 8.3 g/dL (6.4-8.2)
--- NOTE | 2018-06-03 16:28 | NUR ---
TO ROOM FROM LOBBY. NAD.
--- NOTE | 2018-06-03 16:33 | NUR ---
Pt changing into hospital gown at this time. Will return to pt when ready.
--- NOTE | 2018-06-03 16:47 | NUR ---
FIRST CONTACT WITH PT. Pt resting on guanita. Pt states, "for one week I have had paid right here when I am standing (left inguinal area/left groin). It gets worse with standing. It feels better laying down." Pt denies n/v/d, sob, cp, trauma/injury, blood in urine, blood in stool, loss of sensation in lower extremities. Pt states, "It always hurts when I pee." NADN. Pt connected to NIBP and continous pulse ox. Call light within reach.
[2018-06-03 19:06] LABS: MICROSCOPIC NOT IND
[2018-06-03 19:13] LABS: CULTURE INDICATED? NO
--- NOTE | 2018-06-03 19:13 | NUR ---
Pt at imaging on [facility]. Provided report to MILLER Woodward. All questions answered. MILLER Woodward to assume care of this pt.
--- NOTE | 2018-06-03 19:13 | NUR ---
REPORT FROM MARVIN BHATT. PT AT MRI.
[2018-06-03] MEDS ORDERED: HYDR-3653 PO (22:08)
[2018-06-03 23:29] VITALS: BP 116/73
[2018-06-04] MEDS: LACTATED RINGERS 1,000 ML IV SCH ×2 (00:23→07:52)
[2018-06-04] MEDS ORDERED: DOCUSATE 100 MG CAPSULE PO PRN (00:30)
[2018-06-04] MEDS ORDERED: LABETALOL 5 MG/ML SYRINGE IVPush PRN (00:30)
[2018-06-04] MEDS ORDERED: ONDANSETRON 2MG/ML, 2ML IVPush PRN (00:30)
[2018-06-04] MEDS: morphine SULFATE 10 MG/ML, 1ML IVPush PRN ×5 (01:02→21:26)
[2018-06-04 02:09] VITALS: BP 106/75
[2018-06-04] MEDS ORDERED: PREGABALIN 100 MG CAPSULE PO SCH (11:00)
[2018-06-04 11:06] VITALS: BP 106/75
[2018-06-04 11:07] VITALS: BP 101/77
[2018-06-04] MEDS: ALLOPURINOL 300 MG TABLET PO SCH (11:24)
[2018-06-04] MEDS: SERTRALINE 50MG TABLET PO SCH (11:24)
[2018-06-04] MEDS: CYCLOBENZAPRINE 10 MG TABLET PO SCH ×3 (11:24→21:27)
[2018-06-04 13:16] VITALS: BP 95/61
[2018-06-04 19:48] VITALS: BP 111/78
[2018-06-04] MEDS: PREGABALIN 150 MG CAPSULE PO SCH (21:26)
[2018-06-05 00:43] VITALS: BP 92/66
[2018-06-05] MEDS: morphine SULFATE 10 MG/ML, 1ML IVPush PRN ×2 (00:49→04:19)
[2018-06-05 05:20] LABS: INTERNATIONAL NORMALIZED RATIO 1.03 (0.93-1.1); PROTHROMBIN TIME 10.8 Seconds (9.6-11.5)
[2018-06-05 05:23] LABS: BASOPHILS # (AUTO) 0.04 x10^3/uL (0-0.1); BASOPHILS % (AUTO) 0 % (0-1); EOSINOPHILS # (AUTO) 0.36 x10^3/uL (0-0.4); EOSINOPHILS % (AUTO) 4 % (1-7); LYMPHOCYTES # (AUTO) 2.85 x10^3/uL (1-3.4); LYMPHOCYTES % (AUTO) 32 % (22-44); MD NO; MEAN CORPUSCULAR HEMOGLOBIN 31.9 pg (27.5-34.5); MEAN CORPUSCULAR HGB CONC 34.4 g/dL (33.2-36.2); MEAN CORPUSCULAR VOLUME 92.6 fL (81-97); MEAN PLATELET VOLUME 10.2 fL (7.4-10.4); MONOCYTES # (AUTO) 1.04 x10^3/uL (0.2-0.8); MONOCYTES % (AUTO) 12 % (2-9); NEUTROPHILS # (AUTO) 4.57 x10^3/uL (1.8-6.8); NEUTROPHILS % (AUTO) 52 % (42-75); PLATELET COUNT 226 x10^3/uL (130-400); RED CELL DISTRIBUTION WIDTH 15.9 % (9.4-14.8)
[2018-06-05 05:25] LABS: ANION GAP 6 mmol/L (5-15); CALCIUM 8.9 mg/dL (8.5-10.1); CHLORIDE 107 mmol/L (98-107)
[2018-06-05 05:26] LABS: CREATININE 1.21 mg/dL (0.7-1.3)
[2018-06-05 07:20] VITALS: BP 94/56
[2018-06-05] MEDS: PREGABALIN 150 MG CAPSULE PO SCH ×2 (10:22→21:30)
[2018-06-05] MEDS: DOXYCYCLINE 100MG TABLET PO SCH (10:22)
[2018-06-05] MEDS: ALLOPURINOL 300 MG TABLET PO SCH (10:22)
[2018-06-05] MEDS: CYCLOBENZAPRINE 10 MG TABLET PO SCH ×3 (10:22→21:31)
[2018-06-05] MEDS: SERTRALINE 50MG TABLET PO SCH (10:23)
[2018-06-05] MEDS: OXYcodone IR 5MG TABLET PO PRN ×2 (13:02→21:31)
[2018-06-05 13:45] VITALS: BP 100/68
[2018-06-05 21:24] VITALS: BP 96/63
[2018-06-06 03:38] VITALS: BP 95/60
[2018-06-06] MEDS: OXYcodone IR 5MG TABLET PO PRN ×2 (05:14→22:04)
[2018-06-06 07:03] VITALS: BP 94/59
[2018-06-06] MEDS: PREGABALIN 150 MG CAPSULE PO SCH ×2 (08:48→22:04)
[2018-06-06] MEDS: SERTRALINE 50MG TABLET PO SCH (08:48)
[2018-06-06] MEDS: SULFAMETH./TRIMETHOPRIM DS 800MG/160MG TABLET PO SCH ×2 (08:48→22:04)
[2018-06-06] MEDS: CYCLOBENZAPRINE 10 MG TABLET PO SCH ×3 (08:48→22:04)
[2018-06-06] MEDS: DOXYCYCLINE 100MG TABLET PO SCH (08:48)
[2018-06-06] MEDS: ALLOPURINOL 300 MG TABLET PO SCH (08:49)
[2018-06-06 14:02] VITALS: BP 95/63
[2018-06-06 21:00] VITALS: BP 87/61
[2018-06-07 03:30] VITALS: BP 94/60
[2018-06-07] MEDS: ALLOPURINOL 300 MG TABLET PO SCH (09:14)
[2018-06-07] MEDS: PREGABALIN 150 MG CAPSULE PO SCH ×2 (09:14→20:05)
[2018-06-07] MEDS: CYCLOBENZAPRINE 10 MG TABLET PO SCH ×3 (09:14→20:05)
[2018-06-07] MEDS: SULFAMETH./TRIMETHOPRIM DS 800MG/160MG TABLET PO SCH ×2 (09:14→20:04)
[2018-06-07] MEDS: SERTRALINE 50MG TABLET PO SCH (09:14)
[2018-06-07] MEDS: DOXYCYCLINE 100MG TABLET PO SCH (09:14)
[2018-06-07 09:30] VITALS: BP 99/70
[2018-06-07 13:32] VITALS: BP 96/62
[2018-06-07 14:16] LABS: INTERNATIONAL NORMALIZED RATIO 1.02 (0.93-1.1); PROTHROMBIN TIME 10.7 Seconds (9.6-11.5)
[2018-06-07 14:17] LABS: BASOPHILS # (AUTO) 0.03 x10^3/uL (0-0.1); BASOPHILS % (AUTO) 0 % (0-1); EOSINOPHILS # (AUTO) 0.35 x10^3/uL (0-0.4); EOSINOPHILS % (AUTO) 4 % (1-7); LYMPHOCYTES # (AUTO) 2.36 x10^3/uL (1-3.4); LYMPHOCYTES % (AUTO) 26 % (22-44); MD NO; MEAN CORPUSCULAR HEMOGLOBIN 30.8 pg (27.5-34.5); MEAN CORPUSCULAR HGB CONC 32.9 g/dL (33.2-36.2); MEAN CORPUSCULAR VOLUME 93.5 fL (81-97); MEAN PLATELET VOLUME 9.6 fL (7.4-10.4); MONOCYTES # (AUTO) 1.18 x10^3/uL (0.2-0.8); MONOCYTES % (AUTO) 13 % (2-9); NEUTROPHILS # (AUTO) 5.02 x10^3/uL (1.8-6.8); NEUTROPHILS % (AUTO) 56 % (42-75); PLATELET COUNT 209 x10^3/uL (130-400); RED BLOOD COUNT 3.95 x10^6/uL (4.38-5.82); RED CELL DISTRIBUTION WIDTH 16.4 % (9.4-14.8)
[2018-06-07 14:19] LABS: ANION GAP 8 mmol/L (5-15); CALCIUM 8.7 mg/dL (8.5-10.1); CHLORIDE 105 mmol/L (98-107)
[2018-06-07 14:20] LABS: CREATININE 1.41 mg/dL (0.7-1.3)
[2018-06-07] MEDS: OXYcodone IR 5MG TABLET PO PRN (20:12)
[2018-06-07 21:54] VITALS: BP 96/68
[2018-06-08 03:26] VITALS: BP 99/53
[2018-06-08] MEDS ORDERED: TRANEXAMIC ACID 100 MG/ML, 10ML ONE ×4 (06:39)
[2018-06-08] MEDS ORDERED: SODIUM CHLORIDE 0.9% 50 ML ONE (06:39)
[2018-06-08] MEDS ORDERED: ROPIvacaine/PF 0.2%, 20 ML ONE (06:39)
[2018-06-08] MEDS ORDERED: KETOROLAC 60 MG/2 ML ONE (06:39)
[2018-06-08] MEDS ORDERED: EPINEPHRINE 1 MG/ML, 1ML ONE (06:40)
[2018-06-08] MEDS: CYCLOBENZAPRINE 10 MG TABLET PO SCH ×3 (09:00→21:00)
[2018-06-08] MEDS: PREGABALIN 150 MG CAPSULE PO SCH ×2 (09:00→20:12)
[2018-06-08] MEDS: DOXYCYCLINE 100MG TABLET PO SCH (09:00)
[2018-06-08] MEDS: ALLOPURINOL 300 MG TABLET PO SCH (09:00)
[2018-06-08] MEDS: SERTRALINE 50MG TABLET PO SCH (09:00)
[2018-06-08 09:09] VITALS: BP 109/65
[2018-06-08] MEDS ORDERED: MIDAZOLAM 1 MG/ML, 2ML ONE (09:48)
[2018-06-08] MEDS ORDERED: FENTANYL PF 250 MCG/5ML ONE (09:48)
[2018-06-08] MEDS ORDERED: ROCURONIUM 10MG/ML,5ML ONE (09:51)
[2018-06-08] MEDS ORDERED: GLYCOPYRROLATE 0.2MG/1ML, 5ML ONE (09:51)
[2018-06-08] MEDS ORDERED: PROPOFOL 10 MG/ML, 20ML ONE (09:51)
[2018-06-08] MEDS ORDERED: NEOSTIGMINE 1 MG/ML, 10ML ONE (09:51)
[2018-06-08] MEDS ORDERED: CEFAZOLIN 1,000 MG ONE (09:51)
[2018-06-08] MEDS ORDERED: HYDROCORTISONE 100 MG INJ. ONE (11:15)
[2018-06-08] MEDS ORDERED: CLINDAMYCIN 150 MG/ML, 6ML ONE (11:15)
[2018-06-08] MEDS ORDERED: PHENYLEPHRINE 10 MG/ML ONE (11:18)
[2018-06-08] MEDS ORDERED: MORPHINE SULFATE 4 MG/ML, 1ML IVPush PRN (11:30)
[2018-06-08] MEDS ORDERED: ONDANSETRON 2MG/ML, 2ML IV PRN (11:30)
[2018-06-08] MEDS ORDERED: PROMETHAZINE 25 MG SUPP PR PRN (11:30)
[2018-06-08] MEDS ORDERED: OXYcodone 5 MG/5 ML ORAL.SOL UDC PO PRN (11:30)
[2018-06-08] MEDS ORDERED: LABETALOL 5MG/ML, 20ML IV PRN (11:30)
[2018-06-08] MEDS ORDERED: PROMETHAZINE 25 MG/ML, 1ML IV PRN (11:30)
[2018-06-08] MEDS ORDERED: TRANEXAMIC ACID 1,000 MG in SODIUM CHLORIDE 0.9% 100 ML IV ONE (11:30)
[2018-06-08] MEDS ORDERED: hydrALAzine 20 MG/ML, 1ML IV PRN (11:30)
[2018-06-08] MEDS ORDERED: FENTANYL PF 100 MCG/2ML IV PRN (11:30)
[2018-06-08] MEDS ORDERED: PROMETHAZINE 25 MG/ML, 1ML IM PRN ×2 (11:30)
[2018-06-08] MEDS ORDERED: ONDANSETRON ODT 8 MG PO PRN (11:30)
[2018-06-08] MEDS ORDERED: PROMETHAZINE 12.5 MG SUPP PR PRN (11:30)
[2018-06-08] MEDS ORDERED: MEPERIDINE/PF 25MG/0.5ML IVPush PRN (11:30)
[2018-06-08] MEDS ORDERED: VASOPRESSIN 20 UNIT/ML, 1ML ONE (11:50)
[2018-06-08] MEDS ORDERED: EPHEDRINE 50 MG/ML, 1ML ONE (12:08)
[2018-06-08] MEDS ORDERED: FENTANYL PF 100 MCG/2ML ONE (13:26)
[2018-06-08] MEDS ORDERED: HYDROmorphone 1 MG/ML, 1ML ONE (13:26)
[2018-06-08] MEDS: HYDROmorphone 2 MG/ML, 1ML IVPush PRN ×3 (13:30→14:15)
[2018-06-08] MEDS ORDERED: OXYcodone 5 MG/5 ML ORAL.SOL UDC ONE (14:19)
[2018-06-08 15:30] VITALS: BP 94/62
[2018-06-08] MEDS: CLINDAMYCIN PMX 600MG/50ML 50 ML IV SCH (18:43)
[2018-06-08 20:03] VITALS: BP 96/70
[2018-06-08] MEDS: ASPIRIN 81 MG TABLET EC PO SCH (20:12)
[2018-06-08] MEDS: SULFAMETH./TRIMETHOPRIM DS 800MG/160MG TABLET PO SCH (20:12)
[2018-06-09 00:08] VITALS: BP 101/72
[2018-06-09] MEDS: CYCLOBENZAPRINE 10 MG TABLET PO SCH ×3 (02:19→21:00)
[2018-06-09] MEDS: OXYcodone IR 5MG TABLET PO PRN ×3 (02:19→12:59)
[2018-06-09] MEDS: CLINDAMYCIN PMX 600MG/50ML 50 ML IV SCH ×2 (03:09→12:55)
[2018-06-09 04:07] VITALS: BP 103/74
[2018-06-09 06:24] LABS: MEAN CORPUSCULAR HEMOGLOBIN 31.6 pg (27.5-34.5); MEAN CORPUSCULAR HGB CONC 34.1 g/dL (33.2-36.2); MEAN CORPUSCULAR VOLUME 92.7 fL (81-97); MEAN PLATELET VOLUME 9.8 fL (7.4-10.4); PLATELET COUNT 216 x10^3/uL (130-400); RED BLOOD COUNT 3.38 x10^6/uL (4.38-5.82)
[2018-06-09 06:30] LABS: ANION GAP 9 mmol/L (5-15); CALCIUM 8.6 mg/dL (8.5-10.1); CHLORIDE 103 mmol/L (98-107); CREATININE 1.62 mg/dL (0.7-1.3)
[2018-06-09 07:04] LABS: BASOPHILS # (AUTO) 0.02 x10^3/uL (0-0.1); BASOPHILS % (AUTO) 0 % (0-1); EOSINOPHILS # (AUTO) 0.03 x10^3/uL (0-0.4); EOSINOPHILS % (AUTO) 0 % (1-7); LYMPHOCYTES # (AUTO) 2.64 x10^3/uL (1-3.4); LYMPHOCYTES % (AUTO) 18 % (22-44); MD SCAN; MONOCYTES # (AUTO) 1.77 x10^3/uL (0.2-0.8); MONOCYTES % (AUTO) 12 % (2-9); NEUTROPHILS # (AUTO) 10.61 x10^3/uL (1.8-6.8); NEUTROPHILS % (AUTO) 70 % (42-75)
[2018-06-09] MEDS ORDERED: HYDROmorphone 1 MG/ML, 1ML IV PRN (07:30)
[2018-06-09] MEDS ORDERED: ACETAMINOPHEN 325 MG TABLET PO PRN (07:30)
[2018-06-09 08:35] VITALS: BP 86/59
[2018-06-09] MEDS: SERTRALINE 50MG TABLET PO SCH (09:29)
[2018-06-09] MEDS: TAMSULOSIN 0.4 MG CAP.ER.24H PO SCH (09:29)
[2018-06-09] MEDS: PREGABALIN 150 MG CAPSULE PO SCH ×2 (09:29→21:01)
[2018-06-09] MEDS: SULFAMETH./TRIMETHOPRIM DS 800MG/160MG TABLET PO SCH (09:29)
[2018-06-09] MEDS: FUROSEMIDE 20 MG TABLET PO SCH (09:29)
[2018-06-09] MEDS: DOXYCYCLINE 100MG TABLET PO SCH (09:29)
[2018-06-09] MEDS: ALLOPURINOL 300 MG TABLET PO SCH (09:29)
[2018-06-09] MEDS: ASPIRIN 81 MG TABLET EC PO SCH ×2 (09:30→21:01)
[2018-06-09] MEDS ORDERED: SODIUM CHLORIDE 0.9% 1,000ML IVBOLUS ONE (10:00)
[2018-06-09] MEDS ORDERED: VANCOMYCIN PER PHARMACY MC PRN (11:00)
[2018-06-09] MEDS ORDERED: ZOSYN PER PHARMACY MC PRN (11:00)
[2018-06-09 12:06] LABS: MEAN CORPUSCULAR HEMOGLOBIN 31.9 pg (27.5-34.5); MEAN CORPUSCULAR HGB CONC 34.5 g/dL (33.2-36.2); MEAN CORPUSCULAR VOLUME 92.6 fL (81-97); MEAN PLATELET VOLUME 9.2 fL (7.4-10.4); PLATELET COUNT 217 x10^3/uL (130-400); RED BLOOD COUNT 3.28 x10^6/uL (4.38-5.82); RED CELL DISTRIBUTION WIDTH 15.6 % (9.4-14.8)
[2018-06-09 12:25] LABS: BASOPHILS # (AUTO) 0.05 x10^3/uL (0-0.1); BASOPHILS % (AUTO) 0 % (0-1); EOSINOPHILS # (AUTO) 0.07 x10^3/uL (0-0.4); EOSINOPHILS % (AUTO) 1 % (1-7); LYMPHOCYTES # (AUTO) 2.44 x10^3/uL (1-3.4); LYMPHOCYTES % (AUTO) 17 % (22-44); MD SCAN; MONOCYTES # (AUTO) 1.74 x10^3/uL (0.2-0.8); MONOCYTES % (AUTO) 12 % (2-9); NEUTROPHILS # (AUTO) 10.22 x10^3/uL (1.8-6.8); NEUTROPHILS % (AUTO) 70 % (42-75)
[2018-06-09 14:30] VITALS: BP 94/60
[2018-06-09 16:50] VITALS: BP 91/64
[2018-06-09] MEDS ORDERED: HYDROmorphone 2 MG/ML, 1ML ONE (17:49)
[2018-06-09] MEDS: MEROPENEM 1 GM in SODIUM CHLORIDE 0.9% 100 ML IV SCH (18:37)
[2018-06-09 18:39] LABS: MICROSCOPIC NOT IND
[2018-06-09 19:02] LABS: CULTURE INDICATED? NO
[2018-06-09] MEDS ORDERED: PNEUMOC 13-VALENT VACC, 0.5 ML IM-VACC ONE (20:00)
[2018-06-09 20:47] VITALS: BP 91/60
[2018-06-09] MEDS: LINEZOLID 600 MG TABLET PO SCH (21:00)
[2018-06-10 02:00] VITALS: BP 105/49
[2018-06-10] MEDS: MEROPENEM 1 GM in SODIUM CHLORIDE 0.9% 100 ML IV SCH ×3 (02:32→18:27)
[2018-06-10] MEDS: CYCLOBENZAPRINE 10 MG TABLET PO SCH ×4 (03:24→23:31)
[2018-06-10 06:08] LABS: MEAN CORPUSCULAR HGB CONC 34.6 g/dL (33.2-36.2); MEAN CORPUSCULAR VOLUME 92.3 fL (81-97); MEAN PLATELET VOLUME 9.5 fL (7.4-10.4); PLATELET COUNT 178 x10^3/uL (130-400); RED BLOOD COUNT 2.97 x10^6/uL (4.38-5.82)
[2018-06-10 06:17] LABS: ANION GAP 6 mmol/L (5-15); CALCIUM 8.2 mg/dL (8.5-10.1); CHLORIDE 105 mmol/L (98-107)
[2018-06-10 06:19] LABS: CREATININE 1.63 mg/dL (0.7-1.3)
[2018-06-10 07:04] LABS: BASOPHILS # (AUTO) 0.04 x10^3/uL (0-0.1); BASOPHILS % (AUTO) 0 % (0-1); EOSINOPHILS # (AUTO) 0.35 x10^3/uL (0-0.4); EOSINOPHILS % (AUTO) 3 % (1-7); LYMPHOCYTES # (AUTO) 2.18 x10^3/uL (1-3.4); LYMPHOCYTES % (AUTO) 16 % (22-44); MD SCAN; MONOCYTES % (AUTO) 15 % (2-9); NEUTROPHILS # (AUTO) 8.94 x10^3/uL (1.8-6.8); NEUTROPHILS % (AUTO) 66 % (42-75)
[2018-06-10 08:04] VITALS: BP 97/62
[2018-06-10] MEDS: ASPIRIN 81 MG TABLET EC PO SCH ×2 (08:10→22:10)
[2018-06-10] MEDS: PREGABALIN 150 MG CAPSULE PO SCH ×2 (08:10→22:10)
[2018-06-10] MEDS: LINEZOLID 600 MG TABLET PO SCH ×2 (08:10→22:10)
[2018-06-10] MEDS: ALLOPURINOL 300 MG TABLET PO SCH (08:11)
[2018-06-10] MEDS: TAMSULOSIN 0.4 MG CAP.ER.24H PO SCH (08:11)
[2018-06-10] MEDS: SERTRALINE 50MG TABLET PO SCH (08:11)
[2018-06-10] MEDS: FUROSEMIDE 20 MG TABLET PO SCH (09:00)
[2018-06-10 12:59] VITALS: BP 82/55
[2018-06-10] MEDS: OXYcodone IR 5MG TABLET PO PRN (13:31)
[2018-06-10] MEDS: POLYETHYLENE GLYCOL 17 GM PACKET PO PRN (13:48)
[2018-06-10 20:01] VITALS: BP 79/50
[2018-06-10 22:18] VITALS: BP 87/52
[2018-06-10] MEDS ORDERED: SODIUM CHLORIDE 0.9%, 500ML IVBOLUS ONE (23:30)
[2018-06-10 23:33] VITALS: BP 87/51
[2018-06-11] VITALS (7 sets, daily range): BP systolic 82–94; BP diastolic 52–67
[2018-06-11 00:02] LABS: MEAN CORPUSCULAR HGB CONC 34.6 g/dL (33.2-36.2); MEAN CORPUSCULAR VOLUME 92.4 fL (81-97); MEAN PLATELET VOLUME 9.2 fL (7.4-10.4); PLATELET COUNT 185 x10^3/uL (130-400); RED BLOOD COUNT 3.04 x10^6/uL (4.38-5.82); RED CELL DISTRIBUTION WIDTH 16.5 % (9.4-14.8)
[2018-06-11 00:34] LABS: BASOPHILS # (AUTO) 0.08 x10^3/uL (0-0.1); BASOPHILS % (AUTO) 1 % (0-1); EOSINOPHILS # (AUTO) 0.48 x10^3/uL (0-0.4); EOSINOPHILS % (AUTO) 3 % (1-7); LYMPHOCYTES # (AUTO) 1.93 x10^3/uL (1-3.4); LYMPHOCYTES % (AUTO) 14 % (22-44); MD SCAN; MONOCYTES # (AUTO) 1.76 x10^3/uL (0.2-0.8); MONOCYTES % (AUTO) 12 % (2-9); NEUTROPHILS # (AUTO) 9.95 x10^3/uL (1.8-6.8); NEUTROPHILS % (AUTO) 70 % (42-75)
[2018-06-11] MEDS: MEROPENEM 1 GM in SODIUM CHLORIDE 0.9% 100 ML IV SCH ×4 (02:33→18:47)
[2018-06-11 05:47] LABS: MEAN CORPUSCULAR HGB CONC 34.7 g/dL (33.2-36.2); MEAN CORPUSCULAR VOLUME 92.1 fL (81-97); MEAN PLATELET VOLUME 9.7 fL (7.4-10.4); PLATELET COUNT 166 x10^3/uL (130-400); RED CELL DISTRIBUTION WIDTH 15.8 % (9.4-14.8)
[2018-06-11 05:56] LABS: ANION GAP 6 mmol/L (5-15); CALCIUM 7.9 mg/dL (8.5-10.1); CHLORIDE 106 mmol/L (98-107); CREATININE 1.47 mg/dL (0.7-1.3)
[2018-06-11 06:06] LABS: BASOPHILS # (AUTO) 0.05 x10^3/uL (0-0.1); BASOPHILS % (AUTO) 0 % (0-1); EOSINOPHILS # (AUTO) 0.51 x10^3/uL (0-0.4); EOSINOPHILS % (AUTO) 4 % (1-7); LYMPHOCYTES # (AUTO) 1.79 x10^3/uL (1-3.4); LYMPHOCYTES % (AUTO) 13 % (22-44); MD SCAN; MONOCYTES # (AUTO) 1.54 x10^3/uL (0.2-0.8); MONOCYTES % (AUTO) 11 % (2-9); NEUTROPHILS # (AUTO) 9.58 x10^3/uL (1.8-6.8); NEUTROPHILS % (AUTO) 71 % (42-75)
[2018-06-11] MEDS: ASPIRIN 81 MG TABLET EC PO SCH (09:00)
[2018-06-11] MEDS: LINEZOLID 600 MG TABLET PO SCH (09:00)
[2018-06-11] MEDS: PREGABALIN 150 MG CAPSULE PO SCH ×2 (09:00→20:53)
[2018-06-11] MEDS: CYCLOBENZAPRINE 10 MG TABLET PO SCH ×3 (09:01→20:53)
[2018-06-11] MEDS: FUROSEMIDE 20 MG TABLET PO SCH (09:01)
[2018-06-11] MEDS: SERTRALINE 50MG TABLET PO SCH (09:01)
[2018-06-11] MEDS: ALLOPURINOL 300 MG TABLET PO SCH (09:01)
[2018-06-11] MEDS: OXYcodone IR 5MG TABLET PO PRN (09:39)
[2018-06-11] MEDS: DOXYCYCLINE 100MG TABLET PO SCH (09:39)
[2018-06-11] MEDS: POLYETHYLENE GLYCOL 17 GM PACKET PO PRN (09:39)
[2018-06-11] MEDS ORDERED: SODIUM CHLORIDE 0.9% 1,000ML IVBOLUS ONE (11:30)
[2018-06-11] MEDS ORDERED: LACTULOSE 20 GM/30 ML UDC PO PRN (11:30)
[2018-06-11] MEDS ORDERED: BISACODYL 10 MG SUPP PR PRN (11:30)
[2018-06-11] MEDS ORDERED: DILTIAZEM 5 MG/ML, 5ML IVPush ONE (17:00)
[2018-06-11] MEDS ORDERED: AMIODARONE 150 MG in DEXTROSE 5% 100 ML IV ONE (17:00)
[2018-06-11] MEDS ORDERED: AMIODARONE 900 MG in DEXTROSE 5% 482 ML IV PRN (17:00)
[2018-06-11] MEDS ORDERED: FILTER 0.22 MICRON IV ONE (17:30)
[2018-06-11] MEDS ORDERED: OMNIPAQUE 350 MG/ML, 100ML BOTTLE ONE (20:41)
[2018-06-11] MEDS: APIXABAN 5 MG TABLET PO SCH (20:52)
[2018-06-11] MEDS: SENNA/DOCUSATE TABLET PO SCH (20:52)
[2018-06-11] MEDS ORDERED: SODIUM CHLORIDE 0.9%, 500ML IVBOLUS ONE (21:30)
[2018-06-12 02:00] VITALS: BP 91/55
[2018-06-12] MEDS: MEROPENEM 1 GM in SODIUM CHLORIDE 0.9% 100 ML IV SCH ×3 (02:11→18:16)
[2018-06-12 05:22] LABS: BASOPHILS # (AUTO) 0.05 x10^3/uL (0-0.1); BASOPHILS % (AUTO) 0 % (0-1); EOSINOPHILS # (AUTO) 0.57 x10^3/uL (0-0.4); EOSINOPHILS % (AUTO) 5 % (1-7); LYMPHOCYTES # (AUTO) 1.71 x10^3/uL (1-3.4); LYMPHOCYTES % (AUTO) 14 % (22-44); MD NO; MEAN CORPUSCULAR HEMOGLOBIN 30.4 pg (27.5-34.5); MEAN CORPUSCULAR HGB CONC 32.9 g/dL (33.2-36.2); MEAN CORPUSCULAR VOLUME 92.5 fL (81-97); MEAN PLATELET VOLUME 9.8 fL (7.4-10.4); MONOCYTES % (AUTO) 12 % (2-9); NEUTROPHILS # (AUTO) 8.37 x10^3/uL (1.8-6.8); NEUTROPHILS % (AUTO) 69 % (42-75); PLATELET COUNT 184 x10^3/uL (130-400); RED BLOOD COUNT 2.88 x10^6/uL (4.38-5.82); RED CELL DISTRIBUTION WIDTH 15.8 % (9.4-14.8)
[2018-06-12 05:25] LABS: ANION GAP 8 mmol/L (5-15); CHLORIDE 104 mmol/L (98-107); CREATININE 1.31 mg/dL (0.7-1.3)
[2018-06-12 06:38] VITALS: BP 92/59
[2018-06-12] MEDS ORDERED: POTASSIUM CHLORIDE 20 MEQ TAB.ER.PRT PO ONE (08:00)
[2018-06-12] MEDS: APIXABAN 5 MG TABLET PO SCH ×2 (09:10→21:39)
[2018-06-12] MEDS: PREGABALIN 150 MG CAPSULE PO SCH ×2 (09:10→21:39)
[2018-06-12] MEDS: SERTRALINE 50MG TABLET PO SCH (09:10)
[2018-06-12] MEDS: CYCLOBENZAPRINE 10 MG TABLET PO SCH ×3 (09:10→21:00)
[2018-06-12] MEDS: ALLOPURINOL 300 MG TABLET PO SCH (09:10)
[2018-06-12] MEDS: DOXYCYCLINE 100MG TABLET PO SCH (09:11)
[2018-06-12] MEDS: AMIODARONE 200 MG TABLET PO SCH ×2 (09:14→21:39)
[2018-06-12 12:41] VITALS: BP 92/60
[2018-06-12] MEDS ORDERED: MEROPENEM 1 GM in SODIUM CHLORIDE 0.9% 100 ML IV SCH (14:30)
[2018-06-12 14:47] VITALS: BP 96/66
[2018-06-12] MEDS: OXYcodone IR 5MG TABLET PO PRN ×2 (14:50→21:46)
[2018-06-12 19:56] VITALS: BP 94/60
[2018-06-12] MEDS: SENNA/DOCUSATE TABLET PO SCH (21:00)
[2018-06-13 00:40] VITALS: BP 101/62
[2018-06-13] MEDS: MEROPENEM 1 GM in SODIUM CHLORIDE 0.9% 100 ML IV SCH ×3 (02:14→18:05)
[2018-06-13 05:12] LABS: BASOPHILS # (AUTO) 0.03 x10^3/uL (0-0.1); BASOPHILS % (AUTO) 0 % (0-1); EOSINOPHILS # (AUTO) 0.82 x10^3/uL (0-0.4); EOSINOPHILS % (AUTO) 7 % (1-7); LYMPHOCYTES # (AUTO) 2.01 x10^3/uL (1-3.4); LYMPHOCYTES % (AUTO) 18 % (22-44); MD NO; MEAN CORPUSCULAR HEMOGLOBIN 31.9 pg (27.5-34.5); MEAN CORPUSCULAR HGB CONC 34.1 g/dL (33.2-36.2); MEAN CORPUSCULAR VOLUME 93.4 fL (81-97); MEAN PLATELET VOLUME 9.6 fL (7.4-10.4); MONOCYTES # (AUTO) 1.29 x10^3/uL (0.2-0.8); MONOCYTES % (AUTO) 12 % (2-9); NEUTROPHILS # (AUTO) 6.84 x10^3/uL (1.8-6.8); NEUTROPHILS % (AUTO) 62 % (42-75); PLATELET COUNT 191 x10^3/uL (130-400); RED BLOOD COUNT 3.01 x10^6/uL (4.38-5.82); RED CELL DISTRIBUTION WIDTH 16.4 % (9.4-14.8)
[2018-06-13 05:19] LABS: ANION GAP 8 mmol/L (5-15); CALCIUM 7.9 mg/dL (8.5-10.1); CHLORIDE 104 mmol/L (98-107); CREATININE 1.39 mg/dL (0.7-1.3)
[2018-06-13 07:11] VITALS: BP 94/63
[2018-06-13] MEDS: AMIODARONE 200 MG TABLET PO SCH ×2 (08:28→21:40)
[2018-06-13] MEDS: APIXABAN 5 MG TABLET PO SCH ×2 (08:28→21:39)
[2018-06-13] MEDS: ALLOPURINOL 300 MG TABLET PO SCH (08:29)
[2018-06-13] MEDS: DOXYCYCLINE 100MG TABLET PO SCH (08:29)
[2018-06-13] MEDS: POTASSIUM CHLORIDE 20 MEQ TAB.ER.PRT PO SCH (08:29)
[2018-06-13] MEDS: CYCLOBENZAPRINE 10 MG TABLET PO SCH ×3 (08:29→21:41)
[2018-06-13] MEDS: SERTRALINE 50MG TABLET PO SCH (11:03)
[2018-06-13] MEDS: PREGABALIN 150 MG CAPSULE PO SCH ×2 (11:03→21:40)
[2018-06-13 13:07] VITALS: BP 94/61
[2018-06-13 18:55] VITALS: BP 104/71
[2018-06-13] MEDS: OXYcodone IR 5MG TABLET PO PRN ×2 (19:43→21:39)
[2018-06-14 01:33] VITALS: BP 94/61
[2018-06-14] MEDS: MEROPENEM 1 GM in SODIUM CHLORIDE 0.9% 100 ML IV SCH ×3 (02:08→17:40)
[2018-06-14 07:20] VITALS: BP 98/64
[2018-06-14] MEDS: DOXYCYCLINE 100MG TABLET PO SCH (09:53)
[2018-06-14] MEDS: OXYcodone IR 5MG TABLET PO PRN ×3 (09:53→22:01)
[2018-06-14] MEDS: ALLOPURINOL 300 MG TABLET PO SCH (09:53)
[2018-06-14] MEDS: SERTRALINE 50MG TABLET PO SCH (09:53)
[2018-06-14] MEDS: PREGABALIN 150 MG CAPSULE PO SCH ×2 (09:53→20:38)
[2018-06-14] MEDS: POTASSIUM CHLORIDE 20 MEQ TAB.ER.PRT PO SCH (09:53)
[2018-06-14] MEDS: APIXABAN 5 MG TABLET PO SCH ×2 (09:53→20:40)
[2018-06-14] MEDS: AMIODARONE 200 MG TABLET PO SCH ×2 (09:54→20:40)
[2018-06-14] MEDS: CYCLOBENZAPRINE 10 MG TABLET PO SCH ×3 (09:54→20:39)
[2018-06-14 13:20] VITALS: BP 93/61
[2018-06-14 20:17] VITALS: BP 93/60
[2018-06-15 02:23] VITALS: BP 93/58
[2018-06-15] MEDS: MEROPENEM 1 GM in SODIUM CHLORIDE 0.9% 100 ML IV SCH ×3 (02:47→17:22)
[2018-06-15 06:09] LABS: MEAN CORPUSCULAR HEMOGLOBIN 31.8 pg (27.5-34.5); MEAN CORPUSCULAR HGB CONC 34.8 g/dL (33.2-36.2); MEAN CORPUSCULAR VOLUME 91.3 fL (81-97); MEAN PLATELET VOLUME 9.2 fL (7.4-10.4); PLATELET COUNT 186 x10^3/uL (130-400); RED BLOOD COUNT 3.05 x10^6/uL (4.38-5.82); RED CELL DISTRIBUTION WIDTH 16.1 % (9.4-14.8)
[2018-06-15 06:16] LABS: ALBUMIN 1.8 g/dL (3.4-5.0); CALCIUM 7.9 mg/dL (8.5-10.1); CHLORIDE 102 mmol/L (98-107)
[2018-06-15 06:22] LABS: ALANINE AMINOTRANSFERASE 25 U/L (12-78); ALKALINE PHOSPHATASE 160 U/L (45-117); ANION GAP 6 mmol/L (5-15); BILIRUBIN,TOTAL 0.4 mg/dL (0.2-1.0); CREATININE 1.17 mg/dL (0.7-1.3); TOTAL PROTEIN 5.5 g/dL (6.4-8.2)
[2018-06-15 06:34] LABS: BASOPHILS # (AUTO) 0.03 x10^3/uL (0-0.1); BASOPHILS % (AUTO) 0 % (0-1); EOSINOPHILS # (AUTO) 0.77 x10^3/uL (0-0.4); EOSINOPHILS % (AUTO) 7 % (1-7); LYMPHOCYTES # (AUTO) 2.36 x10^3/uL (1-3.4); LYMPHOCYTES % (AUTO) 23 % (22-44); MD SCAN; MONOCYTES % (AUTO) 14 % (2-9); NEUTROPHILS # (AUTO) 5.74 x10^3/uL (1.8-6.8); NEUTROPHILS % (AUTO) 55 % (42-75)
[2018-06-15 06:44] VITALS: BP 96/61
[2018-06-15] MEDS ORDERED: ACYCLOVIR 800 MG TABLET PO SCH (09:30)
[2018-06-15 09:56] VITALS: BP 93/55
[2018-06-15] MEDS: DOXYCYCLINE 100MG TABLET PO SCH (09:57)
[2018-06-15] MEDS: PREGABALIN 150 MG CAPSULE PO SCH (09:57)
[2018-06-15] MEDS: CYCLOBENZAPRINE 10 MG TABLET PO SCH ×2 (09:57→16:41)
[2018-06-15] MEDS: AMIODARONE 200 MG TABLET PO SCH (09:57)
[2018-06-15] MEDS: POTASSIUM CHLORIDE 20 MEQ TAB.ER.PRT PO SCH (09:57)
[2018-06-15] MEDS: APIXABAN 5 MG TABLET PO SCH (09:58)
[2018-06-15] MEDS: SERTRALINE 50MG TABLET PO SCH (09:58)
[2018-06-15] MEDS: ALLOPURINOL 300 MG TABLET PO SCH (09:58)
[2018-06-15] MEDS ORDERED: AMIO200T42 PO ×3 (11:11→11:13)
[2018-06-15] MEDS ORDERED: APIX5TAB PO (11:11)
[2018-06-15] MEDS ORDERED: DOCU-131 PO (11:11)
[2018-06-15] MEDS ORDERED: ACYC-57 PO (11:11)
[2018-06-15] MEDS ORDERED: MERO1VIA15 IV ×2 (11:18)
[2018-06-15] MEDS: OXYcodone IR 5MG TABLET PO PRN ×2 (11:36→17:22)
[2018-06-15] MEDS ORDERED: RIVA20TA PO (11:38)
[2018-06-15 14:22] VITALS: BP 91/60
== END 2018-06-15 18:31 | DRG 469 ==
LOC: ED 20:17 → EDIP 21:41 → 4NOR 22:58 → 5SO 06-11 16:10
PROVIDERS: ADMIT Internal Medicine; ATTEND Internal Medicine
PROC: 0SUB09Z Supplement Left Hip Joint with Liner, Open Approach (ICD-10-PCS; 2018-06-08)
PROC: 0SRB03A Replacement of Left Hip Joint with Ceramic Synthetic Substitute, Uncemented, Open Approach (ICD-10-PCS; principal; 2018-06-08 10:15)
DX: M87.9 Osteonecrosis, unspecified (principal); J18.9 Pneumonia, unspecified organism; S32.392A Other fracture of left ilium, initial encounter for closed fracture; S32.19XA Other fracture of sacrum, initial encounter for closed fracture; D68.69 Other thrombophilia; I47.1 Supraventricular tachycardia; I48.92 Unspecified atrial flutter; Z94.81 Bone marrow transplant status; M87.852 Other osteonecrosis, left femur; K57.90 Diverticulosis of intestine, part unspecified, without perforation or abscess without bleeding; R33.9 Retention of urine, unspecified; I12.9 Hypertensive chronic kidney disease with stage 1 through stage 4 chronic kidney disease, or unspecified chronic kidney disease; N18.3 Chronic kidney disease, stage 3 (moderate); G60.8 Other hereditary and idiopathic neuropathies; G89.29 Other chronic pain; I48.91 Unspecified atrial fibrillation; I77.819 Aortic ectasia, unspecified site; K21.9 Gastro-esophageal reflux disease without esophagitis; L29.9 Pruritus, unspecified; M10.9 Gout, unspecified; Z96.641 Presence of right artificial hip joint; R09.02 Hypoxemia; W00.0XXA Fall on same level due to ice and snow, initial encounter; Y95 Nosocomial condition; Y93.89 Activity, other specified; Y92.89 Other specified places as the place of occurrence of the external cause; Y99.8 Other external cause status; Z79.899 Other long term (current) drug therapy; Z82.49 Family history of ischemic heart disease and other diseases of the circulatory system; Z82.3 Family history of stroke; Z79.01 Long term (current) use of anticoagulants; Z79.2 Long term (current) use of antibiotics; Z87.11 Personal history of peptic ulcer disease; Z79.52 Long term (current) use of systemic steroids; Z80.6 Family history of leukemia; Z87.891 Personal history of nicotine dependence; Z88.1 Allergy status to other antibiotic agents; Z90.49 Acquired absence of other specified parts of digestive tract; Z92.21 Personal history of antineoplastic chemotherapy
CPT/HCPCS: 36415; 71045; 71275; 72170; 80048; 80053; 81003; 84443; 84550; 85025; 85610; 85730; 86850; 86870; 86900; 86922; 86923; 87040; 87081; 88304; 88311; 93005; 93306; C1713; G0378; J0171; J0690; J1170; J1885; J2185; J2250; J2405; J2704; J2710; J2795; J3010; J3490; Q9967; C1776; G0009; J0282; J1720; J2270; J2370; J7030; J7040; J7060; J7120

== ENCOUNTER 2018-09-03 15:19 | Emergency (ER) | payer MEDICARE, OTHER ==
[~2018-09-03] VITALS: Ht 190.5 cm; Wt 82.4 kg
[~2018-09-03 15:19] MED LIST changes: +ACYC-57 PO; +AMIO200T42 PO; +APIX5TAB PO; +HYDR-3653 PO; +MERO1VIA15 IV; +RIVA20TA PO
[2018-09-03 15:48] LABS: BASOPHILS # (AUTO) 0.04 x10^3/uL (0-0.1); BASOPHILS % (AUTO) 0 % (0-1); EOSINOPHILS # (AUTO) 0.22 x10^3/uL (0-0.4); EOSINOPHILS % (AUTO) 2 % (1-7); LYMPHOCYTES # (AUTO) 3.13 x10^3/uL (1-3.4); LYMPHOCYTES % (AUTO) 28 % (22-44); MD NO; MEAN CORPUSCULAR HEMOGLOBIN 31.7 pg (27.5-34.5); MEAN CORPUSCULAR HGB CONC 33.3 g/dL (33.2-36.2); MEAN CORPUSCULAR VOLUME 95.2 fL (81-97); MEAN PLATELET VOLUME 8.8 fL (7.4-10.4); MONOCYTES % (AUTO) 10 % (2-9); NEUTROPHILS # (AUTO) 6.62 x10^3/uL (1.8-6.8); NEUTROPHILS % (AUTO) 60 % (42-75); PLATELET COUNT 254 x10^3/uL (130-400); RED BLOOD COUNT 4.21 x10^6/uL (4.38-5.82)
--- NOTE | 2018-09-03 15:56 | NUR ---
PT PLACED ON BP CUFF, PULSE OX. PT AND FAMILY UPDATED ON POC. PT COMFORTABLE AT THIS TIME, CALL LIGHT WITHIN REACH. AWAITING XR.
[2018-09-03 15:57] LABS: ALBUMIN 2.7 g/dL (3.4-5.0); ANION GAP 10 mmol/L (5-15); CALCIUM 8.7 mg/dL (8.5-10.1); CHLORIDE 105 mmol/L (98-107)
[2018-09-03] MEDS ORDERED: CLINDAMYCIN 150 MG/ML, 6ML IM ONE (16:00)
[2018-09-03 16:01] LABS: ALANINE AMINOTRANSFERASE 15 U/L (12-78); ALKALINE PHOSPHATASE 198 U/L (45-117); BILIRUBIN,TOTAL 0.4 mg/dL (0.2-1.0); CREATININE 1.56 mg/dL (0.7-1.3); TOTAL PROTEIN 8.8 g/dL (6.4-8.2)
[2018-09-03] MEDS ORDERED: CLINDAMYCIN 150 MG/ML, 6ML ONE (16:47)
--- NOTE | 2018-09-03 16:59 | NUR ---
CLINDAMYCIN GIVEN PER ERP ORDER. AWAITING REASSESSMENT, THEN D/C
[2018-09-03 17:35] VITALS: BP 110/61
== END 2018-09-03 17:40 | disposition home or self-care (01) ==
LOC: ED 17:15
DX: G89.11 Acute pain due to trauma (principal); M25.562 Pain in left knee; M70.21 Olecranon bursitis, right elbow; I48.91 Unspecified atrial fibrillation; I10 Essential (primary) hypertension; Z96.649 Presence of unspecified artificial hip joint
CPT/HCPCS: 36415; 73080; 73564; 80053; 85025; 96372; 99284; S0077

== ENCOUNTER 2019-02-23 19:46 | Inpatient (IN) | payer OTHER ==
[~2019-02-23] VITALS: Ht 193 cm; Wt 91.6 kg
[~2019-02-23 19:46] MED LIST changes: +MORP-29 PO; -MORP15TA3 PO; -TEST2.5G5 PO; +TEST2.5G9 PO; -TIZA4TAB PO; +TIZA4TAB2 PO
[2019-02-23] MEDS ORDERED: DIPHENHYDRAMINE 50 MG/ML, 1ML IVPush ONE (20:30)
[2019-02-23] MEDS ORDERED: FAMOTIDINE 20 MG/2 ML IVPush ONE (20:30)
[2019-02-23] MEDS ORDERED: SODIUM CHLORIDE FLUSH 10ML SYR IVF ONE (20:30)
[2019-02-23] MEDS ORDERED: methylPREDNISolone SOD SUCC 125 MG/2 ML IVPush ONE (20:30)
[2019-02-23] MEDS ORDERED: FAMOTIDINE 20 MG/2 ML ONE (20:44)
[2019-02-23] MEDS ORDERED: methylPREDNISolone SOD SUCC 125 MG/2 ML ONE (20:44)
[2019-02-23] MEDS ORDERED: DIPHENHYDRAMINE 50 MG/ML, 1ML ONE (20:44)
[2019-02-23 20:53] LABS: MEAN CORPUSCULAR HEMOGLOBIN 32.9 pg (27.5-34.5); MEAN CORPUSCULAR HGB CONC 32.8 g/dL (33.2-36.2); MEAN CORPUSCULAR VOLUME 100.3 fL (81-97); MEAN PLATELET VOLUME 8.9 fL (7.4-10.4); PLATELET COUNT 247 x10^3/uL (130-400); RED BLOOD COUNT 3.37 x10^6/uL (4.38-5.82); RED CELL DISTRIBUTION WIDTH 18.5 % (9.4-14.8)
[2019-02-23 21:05] LABS: ALBUMIN 2.8 g/dL (3.4-5.0); ANION GAP 5 mmol/L (5-15); CALCIUM 8.8 mg/dL (8.5-10.1); CHLORIDE 108 mmol/L (98-107); CREATININE 1.56 mg/dL (0.7-1.3)
--- NOTE | 2019-02-23 21:05 | NUR ---
PT ARRIVES TO ED AFTER 1 WEEK OF HAVING ALLERGY LIKE SYMPTOMS. PT HAS GENERALIZED RASH THROUGHOUT BODY THAT APPEAR TO LOOK LIKE HIVES. PT HAS ALSO MODERATE LEG EDEMA AND SCALING OF LOWER LEG AND LEFT ANKLE HAS SEVERE SKIN FLAKING AND IS RED WITH WOUNDS THROUGHOUT FOOT AND BODY. 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 PT HAS NO REPS STRIDOR OR AIRWAY OBSTRUCTION AND DENIES SOB. PT IS ITCHING THROUGHOUT HIS BODY AND HAS SMALL ABRASIONS FROM ITCHING.
[2019-02-23 21:22] LABS: MD YES
[2019-02-23 21:25] LABS: EOS#(MANUAL) 1.91 x10^3/uL (0.0-0.4); EOS% (MANUAL) 15 % (1-7); LYMPH#(MANUAL) 2.29 x10^3/uL (1-3.4); LYMPHS% (MANUAL) 18 % (22-44); MONOS#(MANUAL) 0.64 x10^3/uL (0.3-2.7); MONOS% (MANUAL) 5 % (2-9); SEG#(MANUAL) 7.87 x10^3/uL (1.8-6.8); SEGS% (MANUAL) 62 % (42-75)
[2019-02-23 21:27] LABS: ANISOCYTOSIS 1+
[2019-02-23 21:29] LABS: <PLATELET ESTIMATE> ADEQUATE; <PLT MORPHOLOGY> NORMAL PLT MORPH; POLYCHROMASIA 1+
[2019-02-23] MEDS ORDERED: CLINDAMYCIN PMX 600MG/50ML 50 ML IV ONE (21:30)
[2019-02-23] MEDS ORDERED: FUROSEMIDE 40 MG/4 ML IV ONE (21:30)
[2019-02-23] MEDS ORDERED: FUROSEMIDE 40 MG/4 ML ONE (21:46)
[2019-02-23] MEDS ORDERED: CLINDAMYCIN PMX 600MG/50ML 50 ML ONE (21:46)
--- NOTE | 2019-02-23 21:55 | NUR ---
KIMBERLY RN: Pt has noncontracted insurance, paperwork faxed to insurance company at this time.
--- NOTE | 2019-02-23 22:09 | NUR ---
SPOKE WITH MD REGARDING FOR USE OF CLEOCIN AND NOT BEING A MONOTHERAPY FOR POSSIBLE SEPSIS SURVELLIANCE. MD DOES NOT BELEVIE A MONO THERAPY ABX NEEDED.
--- NOTE | 2019-02-23 22:10 | NUR ---
PT MEDICATED PER EMAR.
--- NOTE | 2019-02-23 22:55 | NUR ---
TP RN: Marisol has not contacted us regarding pt, pt bed requested
[2019-02-23] MEDS ORDERED: ACYC-57 PO (23:08)
[2019-02-23] MEDS ORDERED: PREG300C PO (23:08)
[2019-02-23] MEDS ORDERED: SERT100T32 PO (23:08)
[2019-02-23] MEDS ORDERED: FURO20TA3 PO (23:08)
[2019-02-23 23:24] VITALS: BP 112/76
[2019-02-23] MEDS ORDERED: ONDANSETRON 2MG/ML, 2ML IVPush PRN (23:30)
[2019-02-23] MEDS ORDERED: IBUPROFEN 600 MG TABLET PO PRN (23:30)
[2019-02-23] MEDS ORDERED: KETOROLAC 30 MG/1 ML IV PRN (23:30)
[2019-02-23] MEDS ORDERED: POLYETHYLENE GLYCOL 17 GM PACKET PO PRN (23:30)
[2019-02-23] MEDS ORDERED: ACETAMINOPHEN 325 MG TABLET PO PRN (23:30)
[2019-02-24 00:27] LABS: MICROSCOPIC NOT IND
[2019-02-24 00:40] LABS: CULTURE INDICATED? NO
[2019-02-24 01:33] VITALS: BP 107/71
[2019-02-24] MEDS: DIPHENHYDRAMINE 50 MG CAPSULE PO PRN ×2 (04:16→23:21)
[2019-02-24 04:37] LABS: ANION GAP 7 mmol/L (5-15); CALCIUM 8.7 mg/dL (8.5-10.1); CHLORIDE 111 mmol/L (98-107); CREATININE 1.82 mg/dL (0.7-1.3)
[2019-02-24 04:39] LABS: BASOPHILS # (AUTO) 0.02 x10^3/uL (0-0.1); BASOPHILS % (AUTO) 0 % (0-1); EOSINOPHILS # (AUTO) 0.03 x10^3/uL (0-0.4); EOSINOPHILS % (AUTO) 0 % (1-7); LYMPHOCYTES # (AUTO) 0.96 x10^3/uL (1-3.4); LYMPHOCYTES % (AUTO) 14 % (22-44); MD NO; MEAN CORPUSCULAR VOLUME 99.9 fL (81-97); MEAN PLATELET VOLUME 9.2 fL (7.4-10.4); MONOCYTES # (AUTO) 0.04 x10^3/uL (0.2-0.8); MONOCYTES % (AUTO) 1 % (2-9); NEUTROPHILS # (AUTO) 6.02 x10^3/uL (1.8-6.8); NEUTROPHILS % (AUTO) 85 % (42-75); PLATELET COUNT 235 x10^3/uL (130-400); RED BLOOD COUNT 3.35 x10^6/uL (4.38-5.82); RED CELL DISTRIBUTION WIDTH 18.8 % (9.4-14.8)
[2019-02-24] MEDS: CLINDAMYCIN PMX 600MG/50ML 50 ML IV SCH ×2 (06:46→14:47)
[2019-02-24 07:27] VITALS: BP 91/55
[2019-02-24] MEDS: FUROSEMIDE 40 MG TABLET PO SCH ×2 (08:00→17:51)
[2019-02-24 08:30] VITALS: BP 93/52
[2019-02-24] MEDS ORDERED: DOXYCYCLINE 100MG TABLET PO SCH (09:00)
[2019-02-24] MEDS ORDERED: FAMOTIDINE 20 MG TABLET PO SCH (09:00)
[2019-02-24] MEDS ORDERED: ACYCLOVIR 400 MG TABLET PO SCH (09:00)
[2019-02-24] MEDS: predniSONE 50MG TABLET PO SCH (09:12)
[2019-02-24] MEDS: AMIODARONE 200 MG TABLET PO SCH (09:12)
[2019-02-24] MEDS: PREGABALIN 150 MG CAPSULE PO SCH ×2 (09:12→21:08)
[2019-02-24] MEDS: ALLOPURINOL 300 MG TABLET PO SCH (09:12)
[2019-02-24] MEDS: SERTRALINE 100MG TABLET PO SCH (09:16)
[2019-02-24] MEDS ORDERED: PERMETHRIN CRM 5%, 60GM TP ONE (11:00)
[2019-02-24 12:04] VITALS: BP 112/70
[2019-02-24 12:15] LABS: ALBUMIN 2.9 g/dL (3.4-5.0); BILIRUBIN, DIRECT 0.1 mg/dL (0.1-0.2); BILIRUBIN,INDIRECT 0.3 mg/dL (0.0-2.0); BILIRUBIN,TOTAL 0.4 mg/dL (0.2-1.0); TOTAL PROTEIN 7.4 g/dL (6.4-8.2)
[2019-02-24] MEDS: HEPARIN 5,000 UNITS/ML, 1ML SQ SCH ×2 (12:30→21:08)
[2019-02-24] MEDS: TRIAMCINOLONE CRM 0.5%, 15GM TP SCH ×2 (17:00→21:00)
[2019-02-24] MEDS: DAPTOMYCIN 550 MG in SODIUM CHLORIDE 0.9% 100 ML IVPB SCH (18:13)
[2019-02-24 21:03] VITALS: BP 110/61
[2019-02-24] MEDS: FAMOTIDINE 20 MG TABLET PO SCH (21:08)
[2019-02-24] MEDS: TRIAMCINOLONE OINT 0.5%, 15GM TP SCH (21:09)
[2019-02-25 00:51] VITALS: BP 109/72
[2019-02-25] MEDS: TRIAMCINOLONE CRM 0.5%, 15GM TP SCH (03:18)
[2019-02-25] MEDS: HEPARIN 5,000 UNITS/ML, 1ML SQ SCH ×3 (04:44→22:52)
[2019-02-25 07:36] LABS: ANION GAP 9 mmol/L (5-15); CALCIUM 8.6 mg/dL (8.5-10.1); CHLORIDE 110 mmol/L (98-107); CREATININE 1.63 mg/dL (0.7-1.3)
[2019-02-25 07:45] LABS: BASOPHILS # (AUTO) 0.02 x10^3/uL (0-0.1); BASOPHILS % (AUTO) 0 % (0-1); EOSINOPHILS % (AUTO) 0 % (1-7); LYMPHOCYTES # (AUTO) 2.07 x10^3/uL (1-3.4); LYMPHOCYTES % (AUTO) 17 % (22-44); MD SCAN; MEAN CORPUSCULAR HEMOGLOBIN 32.6 pg (27.5-34.5); MEAN CORPUSCULAR VOLUME 98.9 fL (81-97); MEAN PLATELET VOLUME 9.6 fL (7.4-10.4); MONOCYTES # (AUTO) 0.98 x10^3/uL (0.2-0.8); MONOCYTES % (AUTO) 8 % (2-9); NEUTROPHILS % (AUTO) 74 % (42-75); PLATELET COUNT 236 x10^3/uL (130-400); RED BLOOD COUNT 2.98 x10^6/uL (4.38-5.82); RED CELL DISTRIBUTION WIDTH 18.5 % (9.4-14.8)
[2019-02-25 08:09] VITALS: BP 117/73
[2019-02-25] MEDS ORDERED: POTASSIUM CHLORIDE 20 MEQ TAB.ER.PRT PO ONE (09:30)
[2019-02-25] MEDS: FUROSEMIDE 40 MG TABLET PO SCH ×2 (09:35→16:45)
[2019-02-25] MEDS: ALLOPURINOL 300 MG TABLET PO SCH (09:35)
[2019-02-25] MEDS: predniSONE 50MG TABLET PO SCH (09:35)
[2019-02-25] MEDS: FAMOTIDINE 20 MG TABLET PO SCH ×2 (09:36→20:41)
[2019-02-25] MEDS: SERTRALINE 100MG TABLET PO SCH (09:36)
[2019-02-25] MEDS: PREGABALIN 150 MG CAPSULE PO SCH ×2 (09:36→20:42)
[2019-02-25] MEDS: AMIODARONE 200 MG TABLET PO SCH (09:36)
[2019-02-25] MEDS: TRIAMCINOLONE OINT 0.5%, 15GM TP SCH ×3 (09:37→20:42)
[2019-02-25 13:10] VITALS: BP 108/72
[2019-02-25] MEDS ORDERED: DIPHENHYDRAMINE/ZINC CRM 2%, 30GM TP PRN (14:30)
[2019-02-25] MEDS: ONDANSETRON ODT 4 MG PO SCH ×2 (15:03→20:30)
[2019-02-25] MEDS: DIPHENHYDRAMINE 50 MG CAPSULE PO PRN (16:57)
[2019-02-25 20:45] VITALS: BP 111/78
[2019-02-26 02:00] VITALS: BP 94/66
[2019-02-26] MEDS: ONDANSETRON ODT 4 MG PO SCH ×4 (02:24→20:30)
[2019-02-26 06:38] LABS: BASOPHILS # (AUTO) 0.01 x10^3/uL (0-0.1); BASOPHILS % (AUTO) 0 % (0-1); EOSINOPHILS # (AUTO) 0.11 x10^3/uL (0-0.4); EOSINOPHILS % (AUTO) 1 % (1-7); LYMPHOCYTES # (AUTO) 2.48 x10^3/uL (1-3.4); LYMPHOCYTES % (AUTO) 22 % (22-44); MD NO; MEAN CORPUSCULAR HEMOGLOBIN 32.1 pg (27.5-34.5); MEAN CORPUSCULAR HGB CONC 32.7 g/dL (33.2-36.2); MEAN CORPUSCULAR VOLUME 98.2 fL (81-97); MEAN PLATELET VOLUME 8.9 fL (7.4-10.4); MONOCYTES # (AUTO) 1.05 x10^3/uL (0.2-0.8); MONOCYTES % (AUTO) 9 % (2-9); NEUTROPHILS # (AUTO) 7.84 x10^3/uL (1.8-6.8); NEUTROPHILS % (AUTO) 68 % (42-75); PLATELET COUNT 258 x10^3/uL (130-400); RED BLOOD COUNT 3.34 x10^6/uL (4.38-5.82); RED CELL DISTRIBUTION WIDTH 18.2 % (9.4-14.8)
[2019-02-26 06:47] LABS: ANION GAP 8 mmol/L (5-15); CALCIUM 8.4 mg/dL (8.5-10.1); CHLORIDE 106 mmol/L (98-107); CREATININE 1.74 mg/dL (0.7-1.3)
[2019-02-26 07:26] VITALS: BP 100/69
[2019-02-26] MEDS: FUROSEMIDE 40 MG TABLET PO SCH (08:47)
[2019-02-26] MEDS: PREGABALIN 150 MG CAPSULE PO SCH ×2 (08:47→20:40)
[2019-02-26] MEDS: FAMOTIDINE 20 MG TABLET PO SCH ×2 (08:47→20:40)
[2019-02-26] MEDS: AMIODARONE 200 MG TABLET PO SCH (08:48)
[2019-02-26] MEDS: predniSONE 50MG TABLET PO SCH (08:48)
[2019-02-26] MEDS: ALLOPURINOL 300 MG TABLET PO SCH (08:48)
[2019-02-26] MEDS: TRIAMCINOLONE OINT 0.5%, 15GM TP SCH ×3 (08:49→20:42)
[2019-02-26] MEDS ORDERED: LACTATED RINGERS 1,000 ML IV SCH (09:00)
[2019-02-26] MEDS ORDERED: SERTRALINE 100MG TABLET PO SCH (09:00)
[2019-02-26] MEDS: HEPARIN 5,000 UNITS/ML, 1ML SQ SCH ×2 (09:02→16:24)
[2019-02-26 12:35] VITALS: BP 98/62
[2019-02-26] MEDS: DIPHENHYDRAMINE 50 MG CAPSULE PO PRN (13:28)
[2019-02-26] MEDS: MIRTAZAPINE 15 MG TABLET PO SCH (20:40)
[2019-02-26 21:24] VITALS: BP 107/62
[2019-02-27] MEDS: HEPARIN 5,000 UNITS/ML, 1ML SQ SCH ×4 (00:37→23:32)
[2019-02-27] MEDS: DAPTOMYCIN 550 MG in SODIUM CHLORIDE 0.9% 100 ML IVPB SCH (00:37)
[2019-02-27 01:29] VITALS: BP 100/64
[2019-02-27] MEDS: ONDANSETRON ODT 4 MG PO SCH ×4 (01:45→21:44)
[2019-02-27 05:36] LABS: BASOPHILS # (AUTO) 0.01 x10^3/uL (0-0.1); BASOPHILS % (AUTO) 0 % (0-1); EOSINOPHILS # (AUTO) 0.01 x10^3/uL (0-0.4); EOSINOPHILS % (AUTO) 0 % (1-7); LYMPHOCYTES # (AUTO) 3.25 x10^3/uL (1-3.4); LYMPHOCYTES % (AUTO) 25 % (22-44); MD NO; MEAN CORPUSCULAR HEMOGLOBIN 33.1 pg (27.5-34.5); MEAN CORPUSCULAR HGB CONC 32.9 g/dL (33.2-36.2); MEAN CORPUSCULAR VOLUME 100.6 fL (81-97); MEAN PLATELET VOLUME 9.3 fL (7.4-10.4); MONOCYTES # (AUTO) 1.35 x10^3/uL (0.2-0.8); MONOCYTES % (AUTO) 10 % (2-9); NEUTROPHILS # (AUTO) 8.54 x10^3/uL (1.8-6.8); NEUTROPHILS % (AUTO) 65 % (42-75); PLATELET COUNT 253 x10^3/uL (130-400); RED BLOOD COUNT 3.47 x10^6/uL (4.38-5.82); RED CELL DISTRIBUTION WIDTH 18.3 % (9.4-14.8)
[2019-02-27 05:45] LABS: ANION GAP 5 mmol/L (5-15); CALCIUM 8.4 mg/dL (8.5-10.1); CHLORIDE 104 mmol/L (98-107)
[2019-02-27 05:47] LABS: CREATININE 1.94 mg/dL (0.7-1.3)
[2019-02-27 07:52] VITALS: BP 98/63
[2019-02-27] MEDS: ALLOPURINOL 300 MG TABLET PO SCH (08:02)
[2019-02-27] MEDS: FAMOTIDINE 20 MG TABLET PO SCH ×2 (08:02→21:44)
[2019-02-27] MEDS: PREGABALIN 150 MG CAPSULE PO SCH ×2 (08:02→21:44)
[2019-02-27] MEDS: AMIODARONE 200 MG TABLET PO SCH (08:03)
[2019-02-27] MEDS: TRIAMCINOLONE OINT 0.5%, 15GM TP SCH ×3 (08:04→22:07)
[2019-02-27] MEDS ORDERED: FUROSEMIDE 40 MG TABLET PO SCH (09:00)
[2019-02-27] MEDS ORDERED: LACTATED RINGERS 1,000 ML IV SCH (09:00)
[2019-02-27 13:51] VITALS: BP 104/69
[2019-02-27 20:05] VITALS: BP 101/68
[2019-02-27] MEDS: MIRTAZAPINE 15 MG TABLET PO SCH (21:43)
[2019-02-27] MEDS: DIPHENHYDRAMINE 50 MG CAPSULE PO PRN (23:32)
[2019-02-28] MEDS: ONDANSETRON ODT 4 MG PO SCH ×4 (02:30→20:30)
[2019-02-28 03:57] VITALS: BP 104/68
[2019-02-28 05:50] LABS: ANION GAP 8 mmol/L (5-15); CALCIUM 8.5 mg/dL (8.5-10.1); CHLORIDE 105 mmol/L (98-107)
[2019-02-28 05:51] LABS: CREATININE 1.57 mg/dL (0.7-1.3)
[2019-02-28 05:59] LABS: BASOPHILS # (AUTO) 0.02 x10^3/uL (0-0.1); BASOPHILS % (AUTO) 0 % (0-1); EOSINOPHILS # (AUTO) 0.03 x10^3/uL (0-0.4); EOSINOPHILS % (AUTO) 0 % (1-7); LYMPHOCYTES # (AUTO) 3.96 x10^3/uL (1-3.4); LYMPHOCYTES % (AUTO) 29 % (22-44); MD NO; MEAN CORPUSCULAR HEMOGLOBIN 32.5 pg (27.5-34.5); MEAN CORPUSCULAR HGB CONC 32.7 g/dL (33.2-36.2); MEAN CORPUSCULAR VOLUME 99.6 fL (81-97); MEAN PLATELET VOLUME 9.4 fL (7.4-10.4); MONOCYTES # (AUTO) 1.28 x10^3/uL (0.2-0.8); MONOCYTES % (AUTO) 10 % (2-9); NEUTROPHILS % (AUTO) 61 % (42-75); PLATELET COUNT 246 x10^3/uL (130-400); RED BLOOD COUNT 3.37 x10^6/uL (4.38-5.82); RED CELL DISTRIBUTION WIDTH 18.3 % (9.4-14.8)
[2019-02-28 07:23] VITALS: BP 100/66
[2019-02-28] MEDS: TRIAMCINOLONE OINT 0.5%, 15GM TP SCH ×3 (09:00→20:51)
[2019-02-28] MEDS: HEPARIN 5,000 UNITS/ML, 1ML SQ SCH ×2 (09:06→18:02)
[2019-02-28] MEDS: ALLOPURINOL 300 MG TABLET PO SCH (09:06)
[2019-02-28] MEDS: PREGABALIN 150 MG CAPSULE PO SCH ×2 (09:06→20:50)
[2019-02-28] MEDS: AMIODARONE 200 MG TABLET PO SCH (09:07)
[2019-02-28] MEDS: FAMOTIDINE 20 MG TABLET PO SCH ×2 (09:07→20:50)
[2019-02-28 14:00] VITALS: BP 103/67
[2019-02-28 20:05] VITALS: BP 98/64
[2019-02-28] MEDS: MIRTAZAPINE 15 MG TABLET PO SCH (20:50)
[2019-02-28] MEDS: DAPTOMYCIN 550 MG in SODIUM CHLORIDE 0.9% 100 ML IVPB SCH (23:31)
[2019-03-01] MEDS: ONDANSETRON ODT 4 MG PO SCH ×5 (02:30→20:30)
[2019-03-01 04:10] VITALS: BP 91/58
[2019-03-01] MEDS: HEPARIN 5,000 UNITS/ML, 1ML SQ SCH ×2 (04:14→08:57)
[2019-03-01] MEDS: DIPHENHYDRAMINE 50 MG CAPSULE PO PRN ×2 (04:19→17:28)
[2019-03-01 05:30] LABS: BASOPHILS # (AUTO) 0.04 x10^3/uL (0-0.1); BASOPHILS % (AUTO) 0 % (0-1); EOSINOPHILS % (AUTO) 2 % (1-7); LYMPHOCYTES # (AUTO) 3.95 x10^3/uL (1-3.4); LYMPHOCYTES % (AUTO) 31 % (22-44); MD NO; MEAN CORPUSCULAR HGB CONC 32.5 g/dL (33.2-36.2); MEAN CORPUSCULAR VOLUME 101.8 fL (81-97); MEAN PLATELET VOLUME 9.6 fL (7.4-10.4); MONOCYTES # (AUTO) 1.28 x10^3/uL (0.2-0.8); MONOCYTES % (AUTO) 10 % (2-9); NEUTROPHILS # (AUTO) 7.32 x10^3/uL (1.8-6.8); NEUTROPHILS % (AUTO) 57 % (42-75); PLATELET COUNT 230 x10^3/uL (130-400); RED BLOOD COUNT 3.21 x10^6/uL (4.38-5.82); RED CELL DISTRIBUTION WIDTH 18.6 % (9.4-14.8)
[2019-03-01 05:35] LABS: CHLORIDE 109 mmol/L (98-107)
[2019-03-01 05:39] LABS: ALANINE AMINOTRANSFERASE 56 U/L (12-78); ALBUMIN 2.7 g/dL (3.4-5.0); ALKALINE PHOSPHATASE 128 U/L (45-117); ANION GAP 6 mmol/L (5-15); BILIRUBIN,TOTAL 0.3 mg/dL (0.2-1.0); C-REACTIVE PROTEIN, QUANT 0.34 mg/dL (0.02-0.49); CALCIUM 8.2 mg/dL (8.5-10.1); CREATINE KINASE, TOTAL 29 U/L (39-308); CREATININE 1.61 mg/dL (0.7-1.3); TOTAL PROTEIN 6.7 g/dL (6.4-8.2)
[2019-03-01 06:16] LABS: HCT (SEDRATE) 32.7 % (39.2-51.8)
[2019-03-01 08:30] VITALS: BP 103/72
[2019-03-01] MEDS: PREGABALIN 150 MG CAPSULE PO SCH ×2 (08:55→20:47)
[2019-03-01] MEDS: ALLOPURINOL 300 MG TABLET PO SCH (08:55)
[2019-03-01] MEDS: AMIODARONE 200 MG TABLET PO SCH (08:56)
[2019-03-01] MEDS: FUROSEMIDE 40 MG TABLET PO SCH (08:57)
[2019-03-01] MEDS: TRIAMCINOLONE OINT 0.5%, 15GM TP SCH ×3 (08:57→20:48)
[2019-03-01 13:37] VITALS: BP 101/74
[2019-03-01] MEDS: DAPTOMYCIN 550 MG in SODIUM CHLORIDE 0.9% 100 ML IVPB ONE ×2 (18:36→20:34)
[2019-03-01 19:43] VITALS: BP 103/72
[2019-03-01] MEDS: DABIGATRAN 150 MG CAPSULE PO SCH (20:47)
[2019-03-01] MEDS: MIRTAZAPINE 15 MG TABLET PO SCH (20:48)
[2019-03-02 01:05] VITALS: BP 107/79
[2019-03-02] MEDS: ONDANSETRON ODT 4 MG PO SCH ×4 (02:30→14:30)
[2019-03-02 05:01] LABS: MEAN CORPUSCULAR HEMOGLOBIN 32.8 pg (27.5-34.5); MEAN CORPUSCULAR VOLUME 99.4 fL (81-97); MEAN PLATELET VOLUME 9.1 fL (7.4-10.4); PLATELET COUNT 230 x10^3/uL (130-400); RED BLOOD COUNT 3.14 x10^6/uL (4.38-5.82); RED CELL DISTRIBUTION WIDTH 18.4 % (9.4-14.8)
[2019-03-02 05:10] LABS: CALCIUM 8.6 mg/dL (8.5-10.1); CHLORIDE 105 mmol/L (98-107)
[2019-03-02 05:11] LABS: ANION GAP 4 mmol/L (5-15); CREATININE 1.74 mg/dL (0.7-1.3)
[2019-03-02 05:58] LABS: BASOPHILS # (AUTO) 0.04 x10^3/uL (0-0.1); BASOPHILS % (AUTO) 0 % (0-1); EOSINOPHILS # (AUTO) 0.17 x10^3/uL (0-0.4); EOSINOPHILS % (AUTO) 1 % (1-7); LYMPHOCYTES # (AUTO) 3.67 x10^3/uL (1-3.4); LYMPHOCYTES % (AUTO) 25 % (22-44); MD SCAN; MONOCYTES # (AUTO) 1.55 x10^3/uL (0.2-0.8); MONOCYTES % (AUTO) 11 % (2-9); NEUTROPHILS # (AUTO) 8.99 x10^3/uL (1.8-6.8); NEUTROPHILS % (AUTO) 62 % (42-75)
[2019-03-02 08:07] VITALS: BP 96/72
[2019-03-02] MEDS: ALLOPURINOL 300 MG TABLET PO SCH (08:20)
[2019-03-02] MEDS: DABIGATRAN 150 MG CAPSULE PO SCH (08:20)
[2019-03-02] MEDS: AMIODARONE 200 MG TABLET PO SCH (08:21)
[2019-03-02] MEDS: FUROSEMIDE 40 MG TABLET PO SCH (08:21)
[2019-03-02] MEDS: PREGABALIN 150 MG CAPSULE PO SCH (08:22)
[2019-03-02] MEDS: TRIAMCINOLONE OINT 0.5%, 15GM TP SCH ×2 (08:22→16:00)
[2019-03-02 13:11] VITALS: BP 109/74
[2019-03-02] MEDS ORDERED: DAPTOMYCIN 550 MG in SODIUM CHLORIDE 0.9% 100 ML IVPB SCH (14:00)
[2019-03-02] MEDS ORDERED: DAPTOMYCIN 550 MG in SODIUM CHLORIDE 0.9% 100 ML IVPB ONE (14:00)
[2019-03-02] MEDS ORDERED: TRIA15OI10 TP (14:34)
[2019-03-02] MEDS ORDERED: DABI150C PO (14:34)
[2019-03-02] MEDS ORDERED: PRED20TA PO (14:34)
[2019-03-02] MEDS ORDERED: PRED10TA PO (14:34)
[2019-03-02] MEDS ORDERED: MIRT-34 PO (16:09)
== END 2019-03-02 17:29 | disposition home health service (06) | DRG 871 ==
LOC: ED 21:55 → EDIP 22:14 → 4NW 23:12
PROVIDERS: ADMIT Internal Medicine; ATTEND Internal Medicine
PROC: 0T9B70Z Drainage of Bladder with Drainage Device, Via Natural or Artificial Opening (ICD-10-PCS; principal; 2019-02-24)
DX: A41.1 Sepsis due to other specified staphylococcus (principal); I50.21 Acute systolic (congestive) heart failure; L03.115 Cellulitis of right lower limb; I13.0 Hypertensive heart and chronic kidney disease with heart failure and stage 1 through stage 4 chronic kidney disease, or unspecified chronic kidney disease; I48.20 Chronic atrial fibrillation, unspecified; N17.9 Acute kidney failure, unspecified; Z94.81 Bone marrow transplant status; L03.116 Cellulitis of left lower limb; L27.0 Generalized skin eruption due to drugs and medicaments taken internally; Z88.0 Allergy status to penicillin; Z88.8 Allergy status to other drugs, medicaments and biological substances; B86 Scabies; B96.89 Other specified bacterial agents as the cause of diseases classified elsewhere; E88.09 Other disorders of plasma-protein metabolism, not elsewhere classified; F17.210 Nicotine dependence, cigarettes, uncomplicated; G89.29 Other chronic pain; Z82.49 Family history of ischemic heart disease and other diseases of the circulatory system; Z82.3 Family history of stroke; M10.9 Gout, unspecified; N18.3 Chronic kidney disease, stage 3 (moderate); Z79.01 Long term (current) use of anticoagulants; Z80.6 Family history of leukemia; Z85.6 Personal history of leukemia; Z86.14 Personal history of Methicillin resistant Staphylococcus aureus infection; Z88.1 Allergy status to other antibiotic agents; Z90.49 Acquired absence of other specified parts of digestive tract; Z96.641 Presence of right artificial hip joint; I89.0 Lymphedema, not elsewhere classified; I87.8 Other specified disorders of veins; I77.810 Thoracic aortic ectasia
CPT/HCPCS: 36415; 71045; 80048; 80053; 80076; 81003; 82040; 82550; 82607; 83605; 83880; 84145; 84443; 85025; 85651; 86140; 87040; 87186; 93005; 93306; 93970; 96374; 96375; 99285; G0378; J0878; J1644; J1885; J1940; Q0162; J1200; J2930; J3490; J7512; Q0177

== ENCOUNTER 2019-04-03 12:55 | Emergency (ER) | payer MEDICARE, OTHER ==
[~2019-04-03] VITALS: Ht 190.5 cm; Wt 90.9 kg
[~2019-04-03 12:55] MED LIST changes: +DABI150C PO; +MIRT-34 PO; +PREG300C PO; +SERT100T32 PO; +TRIA15OI10 TP
--- NOTE | 2019-04-03 13:58 | NUR ---
COUTIERIER: PT TO ROOM FROM LOBBY VIA W/C
[2019-04-03] MEDS ORDERED: DIPHENHYDRAMINE 25 MG CAPSULE ONE (14:29)
[2019-04-03] MEDS ORDERED: DIPHENHYDRAMINE 25 MG CAPSULE PO ONE (14:30)
[2019-04-03 14:41] LABS: MEAN CORPUSCULAR HEMOGLOBIN 33.1 pg (27.5-34.5); MEAN CORPUSCULAR HGB CONC 33.6 g/dL (33.2-36.2); MEAN CORPUSCULAR VOLUME 98.6 fL (81-97); MEAN PLATELET VOLUME 8.9 fL (7.4-10.4); PLATELET COUNT 302 x10^3/uL (130-400); RED BLOOD COUNT 3.59 x10^6/uL (4.38-5.82)
[2019-04-03 14:55] LABS: ALBUMIN 2.4 g/dL (3.4-5.0); ANION GAP 7 mmol/L (5-15); CALCIUM 8.7 mg/dL (8.5-10.1); CHLORIDE 106 mmol/L (98-107)
[2019-04-03 14:58] LABS: ALANINE AMINOTRANSFERASE 21 U/L (12-78); ALKALINE PHOSPHATASE 187 U/L (45-117); BILIRUBIN,TOTAL 0.4 mg/dL (0.2-1.0); TOTAL PROTEIN 7.3 g/dL (6.4-8.2)
[2019-04-03 15:19] LABS: BASOPHILS # (AUTO) 0.03 x10^3/uL (0-0.1); BASOPHILS % (AUTO) 0 % (0-1); EOSINOPHILS # (AUTO) 2.48 x10^3/uL (0-0.4); EOSINOPHILS % (AUTO) 19 % (1-7); LYMPHOCYTES # (AUTO) 1.93 x10^3/uL (1-3.4); LYMPHOCYTES % (AUTO) 15 % (22-44); MD SCAN; MONOCYTES # (AUTO) 1.19 x10^3/uL (0.2-0.8); MONOCYTES % (AUTO) 9 % (2-9); NEUTROPHILS # (AUTO) 7.22 x10^3/uL (1.8-6.8); NEUTROPHILS % (AUTO) 56 % (42-75)
--- NOTE | 2019-04-03 16:42 | NUR ---
PT RESTING WITH EYES CLOSED. FRIEND AT BEDSIDE. NO NEEDS AT THIS TIME.
[2019-04-03 17:52] VITALS: BP 104/71
== END 2019-04-03 17:55 | disposition home or self-care (01) ==
LOC: ED 15:27
DX: L25.9 Unspecified contact dermatitis, unspecified cause (principal); I11.0 Hypertensive heart disease with heart failure; I50.9 Heart failure, unspecified; I48.91 Unspecified atrial fibrillation; Z96.649 Presence of unspecified artificial hip joint
CPT/HCPCS: 36415; 73630; 80053; 85025; 93970; 99284; J7512; Q0163